=== PATIENT | male | born 1950 | race Caucasian/White ===

== ENCOUNTER → 2020-03-05 11:38 | Outpatient (BNVA) | payer OTHER, SELFPAY | PROVIDERS: PCP Internal Medicine; Visit Provider Urology | DX: Z76.89 Persons encountering health services in other specified circumstances (principal) ==

== ENCOUNTER → 2020-10-08 15:16 | Outpatient (BNVA) | payer MEDICARE, BC, SELFPAY | PROVIDERS: PCP Internal Medicine; Visit Provider Urology | CPT/HCPCS: Q3014 ==

== ENCOUNTER 2021-01-17 06:00 | Day surgery (SDC) | payer MEDICARE, BC, SELFPAY ==
[2021-01-11 09:13] VITALS: BMI 32.7
[2021-01-17] VITALS (7 sets, daily range): BP systolic 99–154; BP diastolic 43–71; PULSE 59–77; RESP 16–17; TEMP 36.1–36.5; O2SAT 95–99
[2021-01-17] MEDS: Lactated Ringers 1,000 ML 100 ML IVCONT (06:34)
--- NOTE | 2021-01-17 07:14 | HO.ANESPROP2 ---
[facility] Active Problems Active Problems: All Active Problems (Updated 01/11/21 @ 09:32 by Alejandra Thomas RN) Neurogenic urinary bladder disorder (Acute) Urinary urgency (Acute) Past Medical History Medical History (Updated 01/11/21 @ 09:32 by Alejandra Thomas RN) Arthritis Ataxia Balance problem BPH (benign prostatic hyperplasia) Cellulitis Depression Elevated cholesterol GERD (gastroesophageal reflux disease) History of CVA (cerebrovascular accident) HTN (hypertension) Low back pain OAB (overactive bladder) CATALINA on CPAP Spastic paraplegia, hereditary Wheelchair dependence Family History Family History (Updated 01/11/21 @ 09:36 by Alejandra Thomas RN) Father during operation Surgical History Surgical History (Updated 01/11/21 @ 09:32 by Alejandra Thomas RN) Hx of colonoscopy Hx of cystoscopy Hx of eye surgery S/P patent foramen ovale closure Social History Social History (Updated 01/11/21 @ 09:32 by Alejandra Thomas RN) Are you a primary child care worker to a significant other at home: No Patient Tobacco Use Status: Never used Tobacco Use of substances other than those prescribed or required for medical reasons: Yes Substance Use Type: Marijuana Substance Use Type Other:: medical marijuana Are you DNR?: No Advance Directives: No (will bring dos) Advance Directives Information Provided: No Advance Directives on File: No Meds Allergies Allergy/AdvReac Type Severity Reaction Status Date / Time lisinopril AdvReac Intermediate cough Verified 01/11/21 09:03 Home Medications Medication Instructions Recorded Confirmed Last Taken Type baclofen 10 mg tablet 10 mg PO TID 03/05/20 01/11/21 01/17/21 History citalopram 40 mg tablet 40 mg PO BEDTIME 03/05/20 01/11/21 Unknown History dantrolene 25 mg capsule 10 mg PO .0800+1400 03/05/20 01/11/21 Unknown History finasteride 5 mg tablet 5 mg PO BEDTIME 03/05/20 01/11/21 Unknown History ketorolac 0.5 % eye drops drp OPHTHALMIC (EYE) 03/05/20 10/08/20 Unknown History losartan 100 mg tablet 100 mg PO DAILY 03/05/20 01/11/21 Unknown History omeprazole 40 mg capsule,delayed 40 mg PO DAILY 03/05/20 01/11/21 01/17/21 History release simvastatin 40 mg tablet 40 mg PO BEDTIME 03/05/20 01/11/21 Unknown History aspirin 325 mg tablet 325 mg PO DAILY 01/11/21 01/11/21 Unknown History cephalexin 500 mg capsule 1 cap PO BID 01/11/21 01/11/21 01/17/21 History dantrolene 25 mg capsule 20 cap PO BEDTIME 01/11/21 01/11/21 01/17/21 History diltiazem HCl 360 mg 360 mg PO QAM 01/11/21 01/11/21 01/17/21 History capsule,extended release 24 hr docusate sodium 100 mg capsule 100 mg PO DAILY 01/11/21 01/11/21 Unknown History Exam Exam Date and Time: January 17, [id number] Height,Weight and Vital Signs: Height 5 ft 10 in Weight 103.419 kg Last Vital Signs Temp 97.7 F 01/17/21 06:29 Pulse 77 01/17/21 06:29 Resp 16 01/17/21 06:29 BP 154/71 H 01/17/21 06:29 Pulse Ox 98 01/17/21 06:29 Airway Mallampati Class: III TM Dist: >3cm Neck ROM: Full
--- NOTE | 2021-01-17 07:45 | MHC.SHP ---
Pre-Procedural Eval Section A Date of Service: 01/17/21 The patient is an INPATIENT: No Changes since office visit: No Cold of Flu in the past 2 weeks, No New Medical Problems, No Changes in Medication and No Patient answered all questions The History & Physical has been completed within 30 days and I have reviewed it.: No Section B Chief Complaint: bladder dysfunction Details of Present Illness: plan for cysto/bladder botox Relevant Family History (Specify if Yes): No Relevant Social History: None Present Medications: see Short Stay Collaborative assessment Medical History: Significant History History of Previous Operations: No relevant previous surgery Allergies: Allergies Allergy/AdvReac Type Severity Reaction Status Date / Time lisinopril AdvReac Intermediate cough Verified 01/11/21 09:03 Review of Systems Sugical H&P ROS: Negative: Constitution, Cardiovascular, Respiratory, Neurological, Psychiatric, Hem-Onc, Allergic/Immunologic, Gastrointestinal, Genitourinary, Musculoskeletal, Integumentary, Endocrine and Eyes/Ears/Nose/Throat Exam Surgical H&P Exam: Normal: HEENT, Normal: Heart, Normal: Lungs, Normal: Extremities, Normal: Abdomen, Normal: Skin and Normal: Neurological Plan Diagnosis/Plan: Unchanged (cysto, botox) I have reviewed the history and physical and performed a pertinent physical examination on my patient. No changes have occurred unless specified.
--- NOTE | 2021-01-17 08:16 | W.PM.OPN ---
Operative Note Operative Note Date of Service: 01/17/21 Narrative: PreOperative Diagnosis: Overactive bladder with failure of medications Post Operative Diagnosis: Overactive bladder with failure of medications Procedure: Cystoscopy with injection 100 units Botox intra detrusor muscle Surgeon: Dr Jermain Gutierrez Anesthesia: Sedation Indications for procedure: Is a very pleasant 70-year-old male. Has persistent urgency and frequency In setting of progressive neurological condition.. Has failed oral medications Particularly overactive bladder medications with side effects including dry mouth and constipation. For cystoscopy and Botox injection. Is aware of the risks and benefits particularly related to urinary retention and possible infection. Procedure: After informed consent was verified the patient was brought to the operating room and placed in a supine position. Anesthesia was administered per protocol. Cystoscopy performed with 22 [place] cystoscope. Bladder was emptied of urine. Bladder was refilled. Using 100 units of Botox mixed in 10 cc of normal saline injections were placed at the back wall of the bladder. 0.5cc placed at each injection site. Injections were placed in a grid 5 across and for high. Injections were placed from the inferior to superior position. Trabeculations on the bladder wall with targeted for each injection site. Procedure was tolerated well. Patient was extubated and transferred in stable condition to the recovery area. Pathology: None Drains: None
[2021-01-17] MEDS: Phenazopyridine HCL 100 MG TABLET PO (08:35)
== END 2021-01-17 10:00 | disposition home or self-care (01) ==
PROVIDERS: PCP Internal Medicine; Visit Provider Urology
PROC: 3E0K8GC Introduction of Other Therapeutic Substance into Genitourinary Tract, Via Natural or Artificial Opening Endoscopic (ICD-10-PCS; CPT 52287; principal; 2021-01-17 07:30)
DX: N31.9 Neuromuscular dysfunction of bladder, unspecified (principal); N32.81 Overactive bladder; N40.1 Benign prostatic hyperplasia with lower urinary tract symptoms; R39.15 Urgency of urination; R35.0 Frequency of micturition; R29.818 Other symptoms and signs involving the nervous system; R68.2 Dry mouth, unspecified; K59.00 Constipation, unspecified; G11.4 Hereditary spastic paraplegia; Z99.3 Dependence on wheelchair; Z79.899 Other long term (current) drug therapy; Z88.8 Allergy status to other drugs, medicaments and biological substances
CPT/HCPCS: 52287; J0585; J1100; J1956; J2250; J2405; J3010

== ENCOUNTER → 2021-02-01 14:17 | Outpatient (BNVA) | payer MEDICARE, BC, SELFPAY | PROVIDERS: Visit Provider Urology | DX: N31.9 Neuromuscular dysfunction of bladder, unspecified (principal) | CPT/HCPCS: 99212 ==

== ENCOUNTER → 2021-06-02 10:49 | Outpatient (BNVA) | payer MEDICARE, OTHER, SELFPAY | PROVIDERS: Visit Provider Urology | DX: N31.9 Neuromuscular dysfunction of bladder, unspecified (principal); N32.81 Overactive bladder; R39.15 Urgency of urination | CPT/HCPCS: 51798; 99212 ==

== ENCOUNTER → 2021-10-04 10:47 | Outpatient (BNVA) | payer MEDICARE, OTHER, SELFPAY | PROVIDERS: PCP Internal Medicine; Visit Provider Urology | DX: N31.9 Neuromuscular dysfunction of bladder, unspecified (principal) | CPT/HCPCS: 51798; 99212 ==

== ENCOUNTER → 2022-04-12 13:35 | Outpatient (BNVA) | payer MEDICARE, OTHER, SELFPAY | PROVIDERS: PCP Internal Medicine; Visit Provider Urology | DX: N31.9 Neuromuscular dysfunction of bladder, unspecified (principal); R39.15 Urgency of urination | CPT/HCPCS: Q3014 ==

== ENCOUNTER 2022-06-23 10:03 | Outpatient (AMB) | payer MEDICARE, OTHER, SELFPAY ==
--- NOTE | 2022-06-23 10:48 | MHC.OFFVIS ---
Intake Intake Visit Reasons: UTI?/follow up Intake Note: Patient is present for Follow Up UTI Urology Med: Finasteride Antibiotic Allergy: None Blood Thinner: Aspirin Patient states he had recent Bladder ultrasound done and a recent Urine Culture done as well Allergies lisinopril Adverse Reaction (Intermediate, Verified 10/06/22 09:42) cough HPI HPI Comments History of Present Illness Details Dillon Treviño is a very pleasant male. They are a patient of Dr Lowe. He seen for the following urologic conditions - neurogenic bladder Has had some benefit from bethanechol Is performing timed voiding Does have urgency every few hours Upcoming airline flight to [place] His concerns regarding bladder control Recommendation for [place] catheter into use during travel May potentially benefit from bethanechol for bladder squeeze and/or nightly intermittent catheterization At this point will trial double voiding and timed voiding to maintain bladder emptying Neurogenic Bladder: Urinary retention initially found progressive development over time - has hereditary paralysis. Known neurogenic bladder from prior urodynamics 2009 - has been optimized on outlet medication and detrol Imaging results 08/06 no hydronephrosis 08/07 , no hydronephrosis Treatments - Botox January 2021 Current recommendations for double voiding and timed voiding to maintain bladder emptying PFSH Medical History Arthritis Ataxia Balance problem BPH (benign prostatic hyperplasia) Cellulitis Depression Elevated cholesterol GERD (gastroesophageal reflux disease) History of CVA (cerebrovascular accident) HTN (hypertension) Low back pain OAB (overactive bladder) CATALINA on CPAP Spastic paraplegia, hereditary Wheelchair dependence Surgical History Hx of colonoscopy Hx of cystoscopy Hx of eye surgery S/P patent foramen ovale closure Family History Father during operation Social History Are you a primary manager wound care to a significant other at home: No Patient Tobacco Use Status: Never used Tobacco Substance Use Type: Marijuana Review of Systems Const Denies chills and Denies fever(s) Card Reports no additional complaints and Denies syncope Resp Denies cough GI Denies abdominal pain and Denies heartburn Reports as per HPI and Denies change in libido Neuro Denies syncope Psych Denies change in libido Endo Denies change in libido Physical Exam Const General: cooperative, healthy appearing, comfortable and no acute distress Orientation/consciousness: patient oriented x3 HEENT Face and sinus: Yes normal facial exam Mouth: moist mucous membranes Neck Neck: Yes normal visual inspection, Yes full ROM and Yes trachea midline Chest Chest palpation & inspection: normal inspection of the chest Resp Effort & Inspection: normal respiratory effort, able to speak in complete sentences and no respiratory distress GI Inspection: Yes normal to inspection Back/Spine/Pelvis Cervical Spine: normal cervical lordosis Thoracic/Lumbar Spine: thoracic and lumbar spine normal to inspection Skin General skin exam: no rashes or lesions noted Neuro General: patient oriented x3, gait normal, tone normal and moves all extremities Extrem General: Yes normal to inspection and Yes capillary refill normal Results AMB Urinalysis, Automated UA Leukoctes 125 Yvon/uL Last Edit by Sindy Au Melani on 06/23/22 11:04 UA Nitrite Negative Last Edit by Sindy Au Melani on 06/23/22 11:04 UA Urobilinogen 0.2 mg/dL Last Edit by Sindy Au [facility] on 06/23/22 11:04 UA Protein 0 mg/dL Last Edit by Sindy Au Melani on 06/23/22 11:04 UA pH 6.0 Last Edit by Sindy Au [facility] on 06/23/22 11:04 UA Blood 0 Pritesh/uL Last Edit by Sindy Au Melani on 06/23/22 11:04 UA Specific [place] 1.015 Last Edit by Sindy Au Melani on 06/23/22 11:04 UA Ketone Negative Last Edit by Sindy Au [facility] on 06/23/22 11:04 UA Bilirubin 0 mg/dL Last Edit by SIDNEY Ahmadi on 06/23/22 11:04 UA Glucose 0 mg/dL Last Edit by Sindy Au [facility] on 06/23/22 11:04 Results Reviewed Results Reviewed: Laboratory Last Values Urine pH (Auto) 6.0 06/23/22 10:56 Specific [place] (Auto) 1.015 06/23/22 10:56 Urine Protein (Auto) 0 mg/dL 06/23/22 10:56 Glucose (UA)(Auto) 0 mg/dL 06/23/22 10:56 Urine Ketones (Auto) Negative 06/23/22 10:56 Urine Blood (Auto) 0 Pritesh/uL 06/23/22 10:56 Urine Nitrite (Auto) Negative 06/23/22 10:56 Urine Bilirubin (Auto) 0 mg/dL 06/23/22 10:56 Urine Urobilinogen (Auto) 0.2 mg/dL 06/23/22 10:56 Leukocyte Esterase (Auto) 125 Yvon/uL 06/23/22 10:56 Assessment & Plan Assessment & Plan (1) Neurogenic urinary bladder disorder: Comment: Botox January 2021 Code(s): N31.9 - Neuromuscular dysfunction of bladder, unspecified (2) Detrusor instability of bladder: Code(s): N32.81 - Overactive bladder Plan Trial of [place] catheter for travel Orders: Orders AMB Urinalysis Automated 06/23/22 Z13.9 - Encounter for screening, unspecified Patient Instructions: Imaging studies, laboratory and physical exam results were discussed and reviewed in detail. No major barriers to patient understanding were identified. An opportunity to ask questions regarding the treatment plan was provided. All questions were answered. The patient expressed understanding and agreement with the above treatment plan. The patient is aware they should contact our office by phone for worsening of their current condition or the appearance of new urologic symptoms. Compliance is encouraged with any medications and followup testing that is ordered. It is a privilege to participate in the urologic care of your patient. If you have any questions or concerns regarding treatment for the above conditions, or other urologic issues, please do not hesitate to contact me. The office telephone contact is [phone]. This note is constructed using voice recognition software. While every effort has been made to ensure accuracy medical receptionist errors may have been included. Yours sincerely, Dr Jermain Gutierrez MD, [facility] - Urology Providers of Expert, Compassionate Care for the Genitourinary System Coding Level of Care Code Est Pt Level 3 (50447) Diagnoses Neurogenic urinary bladder disorder N31.9 Detrusor instability of bladder N32.81
== END 2022-06-23 11:46 | disposition home or self-care (01) ==
LOC: HO.HUSH 10:03
PROVIDERS: PCP Internal Medicine; Visit Provider Urology
DX: N31.9 Neuromuscular dysfunction of bladder, unspecified (principal); N32.81 Overactive bladder
CPT/HCPCS: 99213

== ENCOUNTER → 2022-06-23 10:03 | Outpatient (BNVA) | payer MEDICARE, OTHER, SELFPAY | PROVIDERS: PCP Internal Medicine; Visit Provider Urology | DX: N31.9 Neuromuscular dysfunction of bladder, unspecified (principal); N32.81 Overactive bladder | CPT/HCPCS: 99212 ==

== ENCOUNTER → 2022-06-27 10:31 | Outpatient (BNVA) | payer MEDICARE, OTHER, SELFPAY | PROVIDERS: PCP Family Medicine; Visit Provider Urology ==

== ENCOUNTER → 2022-07-19 15:00 | Outpatient (BNVA) | payer MEDICARE, OTHER, SELFPAY | PROVIDERS: PCP Family Medicine; Visit Provider Urology | DX: N31.9 Neuromuscular dysfunction of bladder, unspecified (principal) ==

== ENCOUNTER 2022-10-06 09:35 | Outpatient (AMB) | payer MEDICARE, OTHER, SELFPAY ==
--- NOTE | 2022-10-06 09:37 | MHC.OFFVIS ---
Intake Intake Visit Reasons: 3m/PVR/discuss SP tube Intake Note: Patient is present for Follow Up PVR Urology Med: Bethanechol, Myrbetriq, Flomax, Finasteride, Antibiotic Allergy:None Blood Thinner: Aspirin [facility]: [facility] PVR: Allergies lisinopril Adverse Reaction (Intermediate, Verified 10/06/22 09:42) cough Medication List - Last Reconciled 10/06/22 by Jermain Gutierrez MD amlodipine 10 mg PO DAILY aspirin 325 mg PO DAILY atorvastatin 40 mg PO DAILY baclofen 10 mg PO TID bethanechol chloride 50 mg PO BID 30 days dantrolene 10 mg PO .0800+1400 diclofenac sodium 75 mg PO BID diltiazem HCl ER 360 mg PO DAILY finasteride 5 mg PO BEDTIME fluoxetine 40 mg PO BID gabapentin 600 mg PO DAILY ketoconazole 2% 1 appl topical 2XW lactulose 10 grams (15 mL) PO BID 30 days lorazepam 0.5 mg PO DAILY PRN losartan 75 mg PO DAILY mirabegron ER (Myrbetriq) 25 mg PO DAILY 30 days nystatin topical BID PRN nystatin 1 appl topical BID omeprazole 40 mg PO DAILY pantoprazole 40 mg PO DAILY HPI HPI Comments History of Present Illness Details Dillon Treviño is a very pleasant male. They are a patient of Dr Lowe. He seen for the following urologic conditions - neurogenic bladder Recent episode of urosepsis Background of hereditary paralysis Current urologic medications include finasteride with tamsulosin for prostate relaxation Myrbetriq with bethanechol for detrusor instability and impaired contractility Has been performing self catheterization 2 times per day with approximately 4-6 oz Has unsensed urination [id number] postvoid residuals Given recent episode with urosepsis they are interested in defining bladder performance Recommend neuro Urology referral with repeat urodynamics at [facility] Would need to stop bladder medications week prior in order to get baseline evaluation Add methenamine with vitamin-C Neurogenic Bladder: Urinary retention initially found progressive development over time - has hereditary paralysis. Known neurogenic bladder from prior urodynamics 2009 - has been optimized on outlet medication and detrol Imaging results 08/06 [place] no hydronephrosis 08/07 , no hydronephrosis Treatments - Botox January 2021 Current recommendations for double voiding and timed voiding to maintain bladder emptying [facility] Medical History Arthritis Ataxia Balance problem BPH (benign prostatic hyperplasia) Cellulitis Depression Elevated cholesterol GERD (gastroesophageal reflux disease) History of CVA (cerebrovascular accident) HTN (hypertension) Low back pain OAB (overactive bladder) CATALINA on CPAP Spastic paraplegia, hereditary Wheelchair dependence Surgical History Hx of colonoscopy Hx of cystoscopy Hx of eye surgery S/P patent foramen ovale closure Family History Father during operation Social History Are you a primary pediatric critical care nurse to a significant other at home: No Patient Tobacco Use Status: Never used Tobacco Substance Use Type: Marijuana Review of Systems Const Denies chills and Denies fever(s) Card Reports no additional complaints and Denies syncope Resp Denies cough GI Denies abdominal pain and Denies heartburn Reports as per HPI and Denies change in libido Neuro Denies syncope Psych Denies change in libido Endo Denies change in libido Physical Exam Const General: cooperative, healthy appearing, comfortable and no acute distress Orientation/consciousness: patient oriented x3 HEENT Face and sinus: Yes normal facial exam Mouth: moist mucous membranes Neck Neck: Yes normal visual inspection, Yes full ROM and Yes trachea midline Chest Chest palpation & inspection: normal inspection of the chest Resp Effort & Inspection: normal respiratory effort, able to speak in complete sentences and no respiratory distress GI Inspection: Yes normal to inspection Back/Spine/Pelvis Cervical Spine: normal cervical lordosis Thoracic/Lumbar Spine: thoracic and lumbar spine normal to inspection Skin General skin exam: no rashes or lesions noted Neuro General: patient oriented x3, gait normal, tone normal and moves all extremities Extrem General: Yes normal to inspection and Yes capillary refill normal Office Procedures Post Void Residual Post Residual Void Post Void Residual (PVR): [id number] Void Residual by ultrasound Assessment & Plan Assessment & Plan (1) Neurogenic urinary bladder disorder: Comment: Botox January 2021 Code(s): N31.9 - Neuromuscular dysfunction of bladder, unspecified (2) Detrusor instability of bladder: Code(s): N32.81 - Overactive bladder Plan Referral [facility] Six month follow-up Orders: Orders AMB Post Void Residual by ultrasound Today N31.9 - Neuromuscular dysfunction of bladder, unspecified Referrals Urology Referral N31.9 - Neuromuscular dysfunction of bladder, unspecified Medications: New ascorbic acid (vitamin C) 1 g PO DAILY 90 days 90 tabs 1RF N31.9 - Neuromuscular dysfunction of bladder, unspecified, N39.0 - Urinary tract infection, site not specified methenamine hippurate 1 g PO DAILY 90 days 90 tabs 1RF N31.9 - Neuromuscular dysfunction of bladder, unspecified, N39.0 - Urinary tract infection, site not specified Discontinued bethanechol chloride Discontinued Reason: Doctor's Order 50 mg PO BID 30 days 60 tabs 5RF mirabegron ER (Myrbetriq) Discontinued Reason: Doctor's Order 25 mg PO DAILY 30 days 30 tabs 5RF Patient Instructions: Imaging studies, laboratory and physical exam results were discussed and reviewed in detail. No major barriers to patient understanding were identified. An opportunity to ask questions regarding the treatment plan was provided. All questions were answered. The patient expressed understanding and agreement with the above treatment plan. The patient is aware they should contact our office by phone for worsening of their current condition or the appearance of new urologic symptoms. Compliance is encouraged with any medications and followup testing that is ordered. It is a privilege to participate in the urologic care of your patient. If you have any questions or concerns regarding treatment for the above conditions, or other urologic issues, please do not hesitate to contact me. The office telephone contact is [phone]. This note is constructed using voice recognition software. While every effort has been made to ensure accuracy ground source heat pump technician errors may have been included. Yours sincerely, Dr Jermain Gutierrez MD, [facility] - Urology Providers of Expert, Compassionate Care for the Genitourinary System Coding Level of Care Code Est Pt Level 3 (58950) Diagnoses Neurogenic urinary bladder disorder N31.9 Detrusor instability of bladder N32.81 CPT Codes Post Residual Void - PVR CPT Code: [id number] Void Residual by ultrasound ([id number])
== END 2022-10-06 10:34 | disposition home or self-care (01) ==
PROVIDERS: PCP Family Medicine; Visit Provider Urology
DX: N31.9 Neuromuscular dysfunction of bladder, unspecified (principal); N32.81 Overactive bladder
CPT/HCPCS: 99213

== ENCOUNTER → 2022-10-06 09:35 | Outpatient (BNVA) | payer MEDICARE, OTHER, SELFPAY | PROVIDERS: Visit Provider Urology | DX: N31.9 Neuromuscular dysfunction of bladder, unspecified (principal); N32.81 Overactive bladder; G11.4 Hereditary spastic paraplegia; Z99.3 Dependence on wheelchair | CPT/HCPCS: 51798; 99212 ==

== ENCOUNTER 2022-12-07 08:13 | Outpatient (AMB) | payer MEDICARE, OTHER, SELFPAY ==
--- NOTE | 2022-12-07 08:49 | A.OFFVIS_ITS ---
Intake Intake Visit Reasons: discuss SPT after [facility] referral Intake Note: Patient is Present for Telephone Follow Up Urology Med: Finasteride, Methenamine. Antibiotic Allergy: None Blood Thinner: Aspirin, Pharamcy: Allergies lisinopril Adverse Reaction (Intermediate, Verified 10/06/22 09:42) cough HPI HPI Comments History of Present Illness Details Dillon Treviño is a very pleasant male. He is a patient of Dr Lowe. He seen for the following urologic conditions - neurogenic bladder Telemedicine Evaluation 15 min Consultation [place] Marnie Video attempted Had evaluation at [facility] They recommended suprapubic tube No need for urodynamics Discussion today regarding risks and benefits suprapubic tube placement. Good hand function Episode of urosepsis Background of hereditary paralysis Current urologic medications include finasteride with tamsulosin for prostate relaxation Myrbetriq with bethanechol for detrusor instability and impaired contractility Has been performing self catheterization 2 times per day with approximately 4-6 oz Has unsensed urination Encl-nj-hqratwid postvoid residuals Add methenamine with vitamin-C Neurogenic Bladder: Urinary retention initially found progressive development over time - has hereditary paralysis. Known neurogenic bladder from prior urodynamics 2009 - has been optimized on outlet medication and detrol Imaging results 08/06 US no hydronephrosis 08/07 , no hydronephrosis Treatments - Botox January 2021 Current recommendations for double voiding and timed voiding to maintain bladder emptying PFSH Medical History Arthritis Ataxia Balance problem BPH (benign prostatic hyperplasia) Cellulitis Depression Elevated cholesterol GERD (gastroesophageal reflux disease) History of CVA (cerebrovascular accident) HTN (hypertension) Low back pain OAB (overactive bladder) CATALINA on CPAP Spastic paraplegia, hereditary Wheelchair dependence Surgical History Hx of colonoscopy Hx of cystoscopy Hx of eye surgery S/P patent foramen ovale closure Family History Father during operation Social History Are you a primary clinical care coordinator to a significant other at home: No Patient Tobacco Use Status: Never used Tobacco Substance Use Type: Marijuana Review of Systems Const All systems reviewed & are unremarkable except as noted in HPI and below Reports no additional complaints Resp Reports no additional complaints GI Reports no additional complaints Reports as per HPI Musc Reports no additional complaints Physical Exam Telemedicine evaluation Appropriate responses Regular breathing rate and rhythm HEENT Head: Yes normal to inspection Ears: hearing grossly normal bilaterally Eyes General: appearance normal, both eyes and all related structures Neck Neck: Yes normal visual inspection Chest Chest palpation & inspection: normal inspection of the chest Resp Effort & Inspection: normal respiratory effort and able to speak in complete sentences Assessment & Plan Assessment & Plan (1) Neurogenic urinary bladder disorder: Comment: Botox January 2021 Code(s): N31.9 - Neuromuscular dysfunction of bladder, unspecified (2) Detrusor instability of bladder: Code(s): N32.81 - Overactive bladder Plan Risks, benefits and alternatives to therapy were discussed. These include but are not limited to infection, bleeding, damage to local organs and tissues, need for further interventions. Anesthetic risks regarding cardiac arrhythmia, blood clots, and potential mortality were discussed. The patient understands the typical recovery time and the outpatient nature of the procedure. After consideration of these risks the patient gives full informed consent and they wish to move ahead with the procedure. Cystoscopy with suprapubic tube placement Patient Instructions: Imaging studies, laboratory and physical exam results were discussed and reviewed in detail. No major barriers to patient understanding were identified. An opportunity to ask questions regarding the treatment plan was provided. All questions were answered. The patient expressed understanding and agreement with the above treatment plan. The patient is aware they should contact our office by phone for worsening of their current condition or the appearance of new urologic symptoms. Compliance is encouraged with any medications and followup testing that is ordered. It is a privilege to participate in the urologic care of your patient. If you have any questions or concerns regarding treatment for the above conditions, or other urologic issues, please do not hesitate to contact me. The office telephone contact is [phone]. This note is constructed using voice recognition software. While every effort has been made to ensure accuracy bushing press operator errors may have been included. Yours sincerely, Dr Jermain Gutierrez MD, [facility] - Urology Providers of Expert, Compassionate Care for the Genitourinary System Telehealth Telehealth Location of provider rendering services: practice address Location of patient: address on file Patient Identification confirmed using: Name, : Yes Telehealth method: video Patient verbally consented to treatment: Yes Patient verbally consented to billing insurance company: Yes Patient informed of any privacy concerns related to visit: Yes Coding Level of Care Code Tele Est Pt Level 4 (64148) Diagnoses Neurogenic urinary bladder disorder N31.9 Detrusor instability of bladder N32.81
== END 2022-12-07 10:58 | disposition home or self-care (01) ==
LOC: HO.HUSH 08:13
PROVIDERS: PCP Family Medicine; Visit Provider Urology
DX: N31.9 Neuromuscular dysfunction of bladder, unspecified (principal); N32.81 Overactive bladder
CPT/HCPCS: 99214

== ENCOUNTER → 2022-12-07 08:13 | Outpatient (BNVA) | payer MEDICARE, OTHER, SELFPAY | PROVIDERS: PCP Family Medicine; Visit Provider Urology ==

== ENCOUNTER → 2022-12-20 14:31 | Outpatient (BNVA) | payer MEDICARE, OTHER, SELFPAY | PROVIDERS: PCP Family Medicine; Visit Provider Urology | DX: N31.9 Neuromuscular dysfunction of bladder, unspecified (principal) | CPT/HCPCS: 51702 ==

== ENCOUNTER 2023-01-08 11:39 | Day surgery (SDC) | payer MEDICARE, OTHER, SELFPAY ==
--- NOTE | 2023-01-05 10:51 | P.CONAN_ITS ---
Documented by User: Sue Sharp NP 01/05/23 10:53 HPI - Anesthesia Eval Consult details Narrative: 72yo M for Insertion Suprapubic Tube paraplegia, wheelchair dependent [facility] Active Problems Active Problems: All Active Problems (Updated 06/02/21 @ 13:43 by Jermain Gutierrez MD) Detrusor instability of bladder (Acute) Neurogenic urinary bladder disorder (Acute) Urinary urgency (Acute) Past Medical History Medical History (Updated 01/08/23 @ 12:49 by Lori Mcdonald, RN) History of electroconvulsive therapy Spastic paraplegia, hereditary Ataxia Arthritis Low back pain History of CVA (cerebrovascular accident) Cellulitis Balance problem Wheelchair dependence CATALINA on CPAP Depression OAB (overactive bladder) BPH (benign prostatic hyperplasia) GERD (gastroesophageal reflux disease) Elevated cholesterol HTN (hypertension) Family History Family History Father during operation Surgical History Surgical History Hx of eye surgery Hx of cystoscopy Hx of colonoscopy S/P patent foramen ovale closure Social History Social History Are you a primary child care specialist to a significant other at home: No Patient Tobacco Use Status: Never used Tobacco Substance Use Type: Marijuana Are you DNR?: Yes Advance Directives: Yes Advance Directives Information Provided: Yes Advance Directives on File: Yes Advance Directives Date on File: 01/08/23 Nutrition Risks: No Nutritional Risk Meds Allergies Allergy/AdvReac Type Severity Reaction Status Date / Time lisinopril AdvReac Intermediate cough Verified 01/08/23 12:29 Home Medications Medication Instructions Recorded Confirmed Last Taken Type baclofen 10 mg tablet 10 mg PO TID 03/05/20 01/08/23 01/08/23 History dantrolene 25 mg capsule 10 mg PO .0800+1400 03/05/20 10/06/22 Unknown History finasteride 5 mg tablet 5 mg PO BEDTIME 03/05/20 10/06/22 Unknown History omeprazole 40 mg capsule,delayed 40 mg PO DAILY 03/05/20 10/06/22 01/17/21 History release aspirin 325 mg tablet 325 mg PO DAILY 01/11/21 10/06/22 Unknown History amlodipine 10 mg tablet 10 mg PO DAILY 02/01/21 10/06/22 Unknown History diltiazem HCl 360 mg capsule,24 360 mg PO DAILY 02/01/21 01/08/23 01/08/23 History hr,extended release ketoconazole 2 % shampoo 1 appl topical 2XW 02/01/21 10/06/22 Unknown History lorazepam 0.5 mg tablet 0.5 mg PO DAILY PRN 06/02/21 10/06/22 Unknown History nystatin 100,000 unit/gram topical 1 appl topical BID 06/02/21 10/06/22 Unknown History cream nystatin 100,000 unit/gram topical topical BID PRN 06/02/21 10/06/22 Unknown History powder pantoprazole 40 mg tablet,delayed 40 mg PO DAILY 06/02/21 10/06/22 Unknown History release atorvastatin 40 mg tablet 40 mg PO DAILY 10/04/21 10/06/22 Unknown History diclofenac sodium 75 mg 75 mg PO BID 10/04/21 10/06/22 Unknown History tablet,delayed release fluoxetine 20 mg capsule 40 mg PO BID 04/12/22 01/08/23 01/08/23 History gabapentin 600 mg tablet 600 mg PO DAILY 04/12/22 10/06/22 Unknown History losartan 50 mg tablet 75 mg PO DAILY 04/12/22 10/06/22 Unknown History Assessment and Plan Assessment Anesthesia Assessment: Chart Reviewed Documented by User: Dayna Haider MD 01/08/23 15:13 [facility] Past Medical History Medical History (Updated 01/08/23 @ 12:49 by Lori Mcdonald RN) History of electroconvulsive therapy Spastic paraplegia, hereditary Ataxia Arthritis Low back pain History of CVA (cerebrovascular accident) Cellulitis Balance problem Wheelchair dependence CATALINA on CPAP Depression OAB (overactive bladder) BPH (benign prostatic hyperplasia) GERD (gastroesophageal reflux disease) Elevated cholesterol HTN (hypertension) Family History Family History Father during operation Family history of problems with anesthesia: No Surgical History Surgical History Hx of eye surgery Hx of cystoscopy Hx of colonoscopy S/P patent foramen ovale closure History of Problems with Anesthesia: No Social History Social History Are you a primary child care specialist to a significant other at home: No Patient Tobacco Use Status: Never used Tobacco Substance Use Type: Marijuana Are you DNR?: Yes Advance Directives: Yes Advance Directives Information Provided: Yes Advance Directives on File: Yes Advance Directives Date on File: 01/08/23 Nutrition Risks: No Nutritional Risk Meds Allergies Allergy/AdvReac Type Severity Reaction Status Date / Time lisinopril AdvReac Intermediate cough Verified 01/08/23 12:29 Home Medications Medication Instructions Recorded Confirmed Last Taken Type baclofen 10 mg tablet 10 mg PO TID 03/05/20 01/08/23 01/08/23 History dantrolene 25 mg capsule 10 mg PO .0800+1400 03/05/20 10/06/22 Unknown History finasteride 5 mg tablet 5 mg PO BEDTIME 03/05/20 10/06/22 Unknown History omeprazole 40 mg capsule,delayed 40 mg PO DAILY 03/05/20 10/06/22 01/17/21 History release aspirin 325 mg tablet 325 mg PO DAILY 01/11/21 10/06/22 Unknown History amlodipine 10 mg tablet 10 mg PO DAILY 02/01/21 10/06/22 Unknown History diltiazem HCl 360 mg capsule,24 360 mg PO DAILY 02/01/21 01/08/23 01/08/23 History hr,extended release ketoconazole 2 % shampoo 1 appl topical 2XW 02/01/21 10/06/22 Unknown History lorazepam 0.5 mg tablet 0.5 mg PO DAILY PRN 06/02/21 10/06/22 Unknown History nystatin 100,000 unit/gram topical 1 appl topical BID 06/02/21 10/06/22 Unknown History cream nystatin 100,000 unit/gram topical topical BID PRN 06/02/21 10/06/22 Unknown History powder pantoprazole 40 mg tablet,delayed 40 mg PO DAILY 06/02/21 10/06/22 Unknown History release atorvastatin 40 mg tablet 40 mg PO DAILY 10/04/21 10/06/22 Unknown History diclofenac sodium 75 mg 75 mg PO BID 10/04/21 10/06/22 Unknown History tablet,delayed release fluoxetine 20 mg capsule 40 mg PO BID 04/12/22 01/08/23 01/08/23 History gabapentin 600 mg tablet 600 mg PO DAILY 04/12/22 10/06/22 Unknown History losartan 50 mg tablet 75 mg PO DAILY 04/12/22 10/06/22 Unknown History Exam Airway Mallampati Class: II (multiple caps, crowns laterally) TM Dist: >3cm Neck ROM: Full Heart: rrr Lungs: cta Assessment and Plan Assessment Anesthesia Assessment: Anesthesia Plan Discussed Final Anesthetic Review Family History of Problems with Anesthesia: No History of Problems with Anesthesia: No NPO: Yes ASA Class: III Final Preanesthetic Review: No Changes in Pt Med Stat, Meds/Allgs Chart Reviewed and Consent Obtained/Reviewed Patient Risk: Intermediate Procedure Risk: Intermediate Anesthetic Plan Anesthetic Plan: MAC: Disposition: Standard PACU
[2023-01-08] MEDS: Lactated Ringers 1,000 ML 100 ML IVCONT (13:04)
[2023-01-08 13:05] VITALS: BP 141/63; PULSE 81; RESP 18; TEMP 36.7; O2SAT 96
[2023-01-08 13:06] VITALS: BMI 30.7
--- NOTE | 2023-01-08 14:54 | PC.NURSE ---
report given to arlin robertson rn at this time.
--- NOTE | 2023-01-08 15:09 | MHC.SHP ---
Pre-Procedural Eval Section A Date of Service: 01/08/23 The patient is an INPATIENT: No Changes since office visit: No Cold of Flu in the past 2 weeks, No New Medical Problems, No Changes in Medication and No Patient answered all questions The History & Physical has been completed within 30 days and I have reviewed it.: Yes Section B Chief Complaint: Neuromuscular dysfunction of bladder, unspecified Allergies: Allergies Allergy/AdvReac Type Severity Reaction Status Date / Time lisinopril AdvReac Intermediate cough Verified 01/08/23 12:29 Plan Diagnosis/Plan: Unchanged (cystoscopy, suprapubic tube placement) I have reviewed the history and physical and performed a pertinent physical examination on my patient. No changes have occurred unless specified. Time Spent With Patient Time: Total time managing care of this patient today ____ minutes.
[2023-01-08 16:14] VITALS: BP 123/62; PULSE 71; RESP 15; TEMP 37; O2SAT 96
--- NOTE | 2023-01-08 16:17 | W.PM.OPN ---
Operative Note Operative Note Date of Service: 01/08/23 Narrative: PreOperative Diagnosis:?neurogenic bladder Post Operative Diagnosis:?neurogenic bladder Procedure:? 1. Cystoscopy 2. Suprapubic tube placement Surgeon: Dr Jermain Gutierrez Anesthesia:?Sedation plus local Indications for procedure: neurogenic bladder Procedure: After informed consent was verified the patient was brought to the operating room and placed in a supine position.? Anesthesia was administered per protocol. The patient was placed in a modified dorsal lithotomy position and prepped and draped in a sterile fashion. A safety pause was performed confirming patient identity, procedure and antibiotics. A flexible cystoscope was inserted per urethra. Bladder was examined in its entirety. No abnormalities seen. Air bubble was located at the dome of the bladder. A finder needle was inserted 2 fingerbreaths above the symphysis pubis on the abdomen into the bladder.? The needle was visualized in the bladder via cystoscopy. Local anesthetic was infiltrated subcutaneously around the needle introduction site. A small, 1cm horizontal incision was made.? A trocar introducer was advanced through the abdominal wall into the bladder under visualization. The obturator was removed and a 16 Fr guevara catheter placed. 7cc was used to inflate the balloon. The external portion of the trocar was removed. Dressing was placed, the bladder was emptied, and a drainage bag was attached. The patient tolerated the procedure and was transferred in stable condition to the recovery area. Suprapubic tube will be changed in 1 month with a follow-up office visit.
[2023-01-08 16:29] VITALS: BP 132/64; PULSE 68; RESP 16; O2SAT 97
[2023-01-08 16:44] VITALS: BP 138/66; PULSE 66; RESP 16; O2SAT 95
[2023-01-08 16:59] VITALS: BP 138/66; PULSE 68; RESP 16; O2SAT 96
[2023-01-08 17:14] VITALS: BP 150/75; PULSE 72; RESP 16; TEMP 36.7; O2SAT 97
== END 2023-01-08 18:02 | disposition home or self-care (01) ==
PROVIDERS: PCP Internal Medicine; Visit Provider Urology
PROC: (CPT 51102; principal; 2023-01-08 13:50)
DX: N31.9 Neuromuscular dysfunction of bladder, unspecified (principal); N32.81 Overactive bladder; N40.0 Benign prostatic hyperplasia without lower urinary tract symptoms; I10 Essential (primary) hypertension; E78.5 Hyperlipidemia, unspecified; K21.9 Gastro-esophageal reflux disease without esophagitis; G11.4 Hereditary spastic paraplegia; F12.90 Cannabis use, unspecified, uncomplicated; G47.33 Obstructive sleep apnea (adult) (pediatric); Z99.89 Dependence on other enabling machines and devices; Z86.73 Personal history of transient ischemic attack (TIA), and cerebral infarction without residual deficits; Z99.3 Dependence on wheelchair; Z79.82 Long term (current) use of aspirin
CPT/HCPCS: 51102; J1956; J2250; J2704; J2795; J3010

== ENCOUNTER → 2023-01-08 11:39 | Outpatient (BNV) | payer MEDICARE, OTHER, SELFPAY | PROVIDERS: PCP Internal Medicine; Visit Provider Urology | DX: N31.9 Neuromuscular dysfunction of bladder, unspecified (principal) | CPT/HCPCS: 51102 ==

== ENCOUNTER 2023-01-12 04:50 | Emergency (ER) | payer MEDICARE, OTHER, SELFPAY ==
[2023-01-12 05:09] VITALS: BP 150/90; PULSE 82; O2SAT 98; BMI 34.0
[2023-01-12 05:10] VITALS: BP 161/62; PULSE 84; RESP 18; TEMP 36.9; O2SAT 96
--- NOTE | 2023-01-12 05:35 | ED_ITS ---
HPI - Male Genitourinary General Chief complaint: Urogenital-Male Stated complaint: CATH ISSUE Time Seen by Provider: 01/12/23 05:24 Source: patient Mode of arrival: EMS Limitations: no limitations History of Present Illness HPI Narrative: Patient came here as his suprapubic catheter came out which was placed 5 days ago patient on cephalexin 500 mg twice daily for chronic UTI. No fever no chills no other symptoms Related Data Home Medications Medication Instructions Recorded Confirmed baclofen 10 mg tablet 10 mg PO TID 03/05/20 01/08/23 dantrolene 25 mg capsule 10 mg PO .0800+1400 03/05/20 10/06/22 finasteride 5 mg tablet 5 mg PO BEDTIME 03/05/20 10/06/22 omeprazole 40 mg capsule,delayed 40 mg PO DAILY 03/05/20 10/06/22 release aspirin 325 mg tablet 325 mg PO DAILY 01/11/21 10/06/22 amlodipine 10 mg tablet 10 mg PO DAILY 02/01/21 10/06/22 diltiazem HCl 360 mg capsule,24 360 mg PO DAILY 02/01/21 01/08/23 hr,extended release ketoconazole 2 % shampoo 1 appl topical 2XW 02/01/21 10/06/22 lorazepam 0.5 mg tablet 0.5 mg PO DAILY PRN 06/02/21 10/06/22 nystatin 100,000 unit/gram topical 1 appl topical BID 06/02/21 10/06/22 cream nystatin 100,000 unit/gram topical topical BID PRN 06/02/21 10/06/22 powder pantoprazole 40 mg tablet,delayed 40 mg PO DAILY 06/02/21 10/06/22 release atorvastatin 40 mg tablet 40 mg PO DAILY 10/04/21 10/06/22 diclofenac sodium 75 mg 75 mg PO BID 10/04/21 10/06/22 tablet,delayed release fluoxetine 20 mg capsule 40 mg PO BID 04/12/22 01/08/23 gabapentin 600 mg tablet 600 mg PO DAILY 04/12/22 10/06/22 losartan 50 mg tablet 75 mg PO DAILY 04/12/22 10/06/22 Previous Rx's Medication Instructions Recorded lactulose 10 gram/15 mL oral 10 g (15 mL) PO BID 30 days #946 mL 06/02/21 solution ascorbic acid (vitamin C) 1,000 mg 1 g PO DAILY 90 days #90 tabs 10/06/22 tablet methenamine hippurate 1 gram tablet 1 g PO DAILY 90 days #90 tabs 10/06/22 Allergies Allergy/AdvReac Type Severity Reaction Status Date / Time lisinopril AdvReac Intermediate cough Verified 01/08/23 12:29 Review of Systems Review of Systems: Yes all other systems are reviewed and are negative [facility] Past Medical History Medical History History of electroconvulsive therapy Spastic paraplegia, hereditary Ataxia Arthritis Low back pain History of CVA (cerebrovascular accident) Cellulitis Balance problem Wheelchair dependence CATALINA on CPAP Depression OAB (overactive bladder) BPH (benign prostatic hyperplasia) GERD (gastroesophageal reflux disease) Elevated cholesterol HTN (hypertension) Surgical History Hx of eye surgery Hx of cystoscopy Hx of colonoscopy S/P patent foramen ovale closure Family History Family History Father during operation Social History Are you a primary animal care assistant to a significant other at home: No Patient Tobacco Use Status: Never used Tobacco Smoked in Last 30 Days: No Use of substances other than those prescribed or required for medical reasons: No Substance Use Type: Marijuana Advance Directives: Yes Advance Directives on File: Yes Advance Directives Date on File: 01/08/23 Physical Exam Vital Signs: Vital Signs: Last Vital Signs Temp 98.5 F 01/12/23 05:10 Pulse 84 01/12/23 05:10 Resp 18 01/12/23 05:10 BP 161/62 H 01/12/23 05:10 Pulse Ox 96 01/12/23 05:10 O2 Del Method Room Air 01/12/23 05:10 BMI result Body Mass Index 34.0 Appearance: Alert. Oriented X3. No acute distress. CVS: Normal heart rate and rhythm. Pulses normal. Respiratory: No respiratory distress. Equal air entry bilateral, Abdomen: Soft and nontender. Bowel sounds are present, suprapubic catheter site visible Skin: Skin warm and dry. Normal skin color. Normal skin turgor. Neuro: Oriented X 3. Medical Decision Making Medical Decision Making MDM Narrative: Patient with recent dislodgement of suprapubic catheter which was replaced using 16 [place] catheter with good urine return Procedures Catheter Insertion (Urinary) Date of insertion: 01/12/23 Time of insertion: 05:00 Reason for placing: Yes Reason for placing indwelling catheter: Acute urinary retention Bladder scan/ultrasound used before catheterization: No Antiseptic solution prep: Povidone-Iodine Topical anesthesia used: No Catheter type/location: Suprapubic Size ([place]): 16 Catheter balloon size (mL): 10 Catheter balloon amount: 10 Procedure performed: without complications Discharge Plan Discharge Clinical Impression: Suprapubic catheter Patient Disposition: Home, Self-Care Instructions: How to Care for Your Suprapubic Catheter (DC) Additional Instructions: Care of suprapubic catheter as advised Continue antibiotics as prescribed and follow with the urologist Prescriptions: No Action aspirin 325 mg Tablet 325 mg PO DAILY dantrolene 25 mg capsule 10 mg PO .0800+1400 finasteride 5 mg tablet 5 mg PO BEDTIME omeprazole 40 mg capsule,delayed release(DR/EC) 40 mg PO DAILY baclofen 10 mg tablet 10 mg PO TID diltiazem HCl 360 mg capsule,extended release 24 hr 360 mg PO DAILY amlodipine 10 mg tablet 10 mg PO DAILY ketoconazole 2 % shampoo 1 appl topical 2XW atorvastatin 40 mg tablet 40 mg PO DAILY diclofenac sodium 75 mg tablet,delayed release (DR/EC) 75 mg PO BID ascorbic acid (vitamin C) 1,000 mg tablet 1 g PO DAILY 90 Days Qty: 90 1RF methenamine hippurate 1 gram tablet 1 g PO DAILY 90 Days Qty: 90 1RF lorazepam 0.5 mg tablet 0.5 mg PO DAILY PRN pantoprazole 40 mg tablet,delayed release (DR/EC) 40 mg PO DAILY nystatin 100,000 unit/gram cream 1 appl topical BID nystatin 100,000 unit/gram powder topical BID PRN lactulose 10 gram/15 mL solution 10 g PO BID 30 Days Qty: 946 4RF losartan 50 mg tablet 75 mg PO DAILY gabapentin 600 mg tablet 600 mg PO DAILY fluoxetine 20 mg capsule 40 mg PO BID Interventions: ED Discharge Assessment Last Done: 01/12/23 05:51 Discharge Date/Time: 01/12/23 05:51
== END 2023-01-12 05:51 | disposition home or self-care (01) ==
PROVIDERS: Emergency Provider Internal Medicine; PCP Internal Medicine
DX: N39.0 Urinary tract infection, site not specified (principal); Z79.899 Other long term (current) drug therapy
CPT/HCPCS: 51702; 99283; 99284

== ENCOUNTER 2023-01-16 13:26 | Outpatient (AMB) | payer MEDICARE, OTHER, SELFPAY ==
--- NOTE | 2023-01-16 13:39 | MHC.OFFVIS ---
Intake Intake Visit Reasons: Cath review Intake Note: Patient is present to have catheter checked by Dr Maria Patient informed that he stopped the tamsulosin on Sunday and stopped Aspirin on Per dr maria instructions Allergies lisinopril Adverse Reaction (Intermediate, Verified 02/09/23 10:35) cough HPI HPI Comments History of Present Illness Details Dillon Treviño is a very pleasant male. He is a patient of Dr Lowe. He seen for the following urologic conditions - neurogenic bladder Suprapubic tube came out Replaced in emergency room Reviewed in office today and is stable Good flow Return in 1 month for catheter change Neurogenic Bladder: Urinary retention initially found progressive development over time - has hereditary paralysis. Known neurogenic bladder from prior urodynamics 2009 - has been optimized on outlet medication and detrol Imaging results 08/06 no hydronephrosis 08/07 , no hydronephrosis Treatments - Botox January 2021 Current recommendations for double voiding and timed voiding to maintain bladder emptying PFSH Medical History History of electroconvulsive therapy Spastic paraplegia, hereditary Ataxia Arthritis Low back pain History of CVA (cerebrovascular accident) Cellulitis Balance problem Wheelchair dependence CATALINA on CPAP Depression OAB (overactive bladder) BPH (benign prostatic hyperplasia) GERD (gastroesophageal reflux disease) Elevated cholesterol HTN (hypertension) Surgical History Hx of eye surgery Hx of cystoscopy Hx of colonoscopy S/P patent foramen ovale closure Family History Father during operation Social History Are you a primary youth career specialist to a significant other at home: No Patient Tobacco Use Status: Never used Tobacco Substance Use Type: Marijuana Advance Directives Date on File: 01/08/23 Review of Systems Const Denies chills and Denies fever(s) Card Reports no additional complaints and Denies syncope Resp Denies cough GI Denies abdominal pain and Denies heartburn Reports as per HPI and Denies change in libido Neuro Denies syncope Psych Denies change in libido Endo Denies change in libido Physical Exam Const General: cooperative, healthy appearing, comfortable and no acute distress Orientation/consciousness: patient oriented x3 HEENT Face and sinus: Yes normal facial exam Mouth: moist mucous membranes Neck Neck: Yes normal visual inspection, Yes full ROM and Yes trachea midline Chest Chest palpation & inspection: normal inspection of the chest Resp Effort & Inspection: normal respiratory effort, able to speak in complete sentences and no respiratory distress GI Inspection: Yes normal to inspection Back/Spine/Pelvis Cervical Spine: normal cervical lordosis Thoracic/Lumbar Spine: thoracic and lumbar spine normal to inspection Skin General skin exam: no rashes or lesions noted Neuro General: patient oriented x3, gait normal, tone normal and moves all extremities Extrem General: Yes normal to inspection and Yes capillary refill normal Assessment & Plan Assessment & Plan (1) Neurogenic urinary bladder disorder: Comment: Botox January 2021 Code(s): N31.9 - Neuromuscular dysfunction of bladder, unspecified Plan Exchange in 1 month Patient Instructions: Imaging studies, laboratory and physical exam results were discussed and reviewed in detail. No major barriers to patient understanding were identified. An opportunity to ask questions regarding the treatment plan was provided. All questions were answered. The patient expressed understanding and agreement with the above treatment plan. The patient is aware they should contact our office by phone for worsening of their current condition or the appearance of new urologic symptoms. Compliance is encouraged with any medications and followup testing that is ordered. It is a privilege to participate in the urologic care of your patient. If you have any questions or concerns regarding treatment for the above conditions, or other urologic issues, please do not hesitate to contact me. The office telephone contact is [phone]. This note is constructed using voice recognition software. While every effort has been made to ensure accuracy guide escort errors may have been included. Yours sincerely, Dr Jermain Maria MD, [facility] - Urology Providers of Expert, Compassionate Care for the Genitourinary System Coding Level of Care Code Est Pt Level 3 (88892) Diagnoses Neurogenic urinary bladder disorder N31.9
== END 2023-01-16 15:14 | disposition home or self-care (01) ==
PROVIDERS: PCP Internal Medicine; Visit Provider Urology
DX: N31.9 Neuromuscular dysfunction of bladder, unspecified (principal)
CPT/HCPCS: 99213

== ENCOUNTER → 2023-01-16 13:26 | Outpatient (BNVA) | payer MEDICARE, OTHER, SELFPAY | PROVIDERS: PCP Internal Medicine; Visit Provider Urology | DX: N31.9 Neuromuscular dysfunction of bladder, unspecified (principal) | CPT/HCPCS: 99212 ==

== ENCOUNTER 2023-02-09 10:16 | Outpatient (AMB) | payer MEDICARE, OTHER, SELFPAY ==
--- NOTE | 2023-02-09 10:17 | A.OFFVIS_ITS ---
Intake Intake Visit Reasons: spt change (first) Allergies lisinopril Adverse Reaction (Intermediate, Verified 02/09/23 10:35) cough HPI HPI Comments History of Present Illness Details Dillon Treviño is a very pleasant male. He is a patient of Dr Lowe. 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 Known neurogenic bladder from prior urodynamics 2009 - has been optimized on outlet medication and detrol Imaging results 08/06 no hydronephrosis 08/07 , no hydronephrosis Treatments - Botox January 2021 Current recommendations for double voiding and timed voiding to maintain bladder emptying PFSH Medical History History of electroconvulsive therapy Spastic paraplegia, hereditary Ataxia Arthritis Low back pain History of CVA (cerebrovascular accident) Cellulitis Balance problem Wheelchair dependence CATALINA on CPAP Depression OAB (overactive bladder) BPH (benign prostatic hyperplasia) GERD (gastroesophageal reflux disease) Elevated cholesterol HTN (hypertension) Surgical History Hx of eye surgery Hx of cystoscopy Hx of colonoscopy S/P patent foramen ovale closure Family History Father during operation Social History Are you a primary healthcare financial analyst to a significant other at home: No Patient Tobacco Use Status: Never used Tobacco Substance Use Type: Marijuana Advance Directives Date on File: 01/08/23 Review of Systems Const Denies chills and Denies fever(s) Card Reports no additional complaints and Denies syncope Resp Denies cough GI Denies abdominal pain and Denies heartburn Reports as per HPI and Denies change in libido Neuro Denies syncope Psych Denies change in libido Endo Denies change in libido Physical Exam Const General: cooperative, healthy appearing, comfortable and no acute distress Orientation/consciousness: patient oriented x3 HEENT Face and sinus: Yes normal facial exam Mouth: moist mucous membranes Neck Neck: Yes normal visual inspection, Yes full ROM and Yes trachea midline Chest Chest palpation & inspection: normal inspection of the chest Resp Effort & Inspection: normal respiratory effort, able to speak in complete sentences and no respiratory distress GI Inspection: Yes normal to inspection Back/Spine/Pelvis Cervical Spine: normal cervical lordosis Thoracic/Lumbar Spine: thoracic and lumbar spine normal to inspection Skin General skin exam: no rashes or lesions noted Neuro General: patient oriented x3, gait normal, tone normal and moves all extremities Extrem General: Yes normal to inspection and Yes capillary refill normal Office Procedures Bladder/Catheter Procedure Details: Suprapubic change Clean technique Eighteen Lao [id number] of bladder tube Procedure code (CPT) selection complete Assessment & Plan Assessment & Plan (1) Urinary urgency: Code(s): R39.15 - Urgency of urination (2) Neurogenic urinary bladder disorder: Comment: Botox January 2021 Code(s): N31.9 - Neuromuscular dysfunction of bladder, unspecified Plan One month follow-up Patient Instructions: Imaging studies, laboratory and physical exam results were discussed and reviewed in detail. No major barriers to patient understanding were identified. An opportunity to ask questions regarding the treatment plan was provided. All questions were answered. The patient expressed understanding and agreement with the above treatment plan. The patient is aware they should contact our office by phone for worsening of their current condition or the appearance of new urologic symptoms. Compliance is encouraged with any medications and followup testing that is ordered. It is a privilege to participate in the urologic care of your patient. If you h ave any questions or concerns regarding treatment for the above conditions, or other urologic issues, please do not hesitate to contact me. The office telephone contact is [phone]. This note is constructed using voice recognition software. While every effort has been made to ensure accuracy radio survey worker errors may have been included. Yours sincerely, Dr Jermain Gutierrez MD, [facility] - Urology Providers of Expert, Compassionate Care for the Genitourinary System Coding Level of Care Code Est Pt Level 3 (02210) Diagnoses Urinary urgency R39.15 Neurogenic urinary bladder disorder N31.9 CPT Codes Bladder/Catheter Procedure - CPT: 33635-[id number] of bladder tube ([id number])
== END 2023-02-09 11:06 | disposition home or self-care (01) ==
PROVIDERS: PCP Family Medicine; Visit Provider Urology
DX: R39.15 Urgency of urination (principal); N31.9 Neuromuscular dysfunction of bladder, unspecified; Z96.0 Presence of urogenital implants
CPT/HCPCS: 51705; 99213

== ENCOUNTER → 2023-02-09 10:16 | Outpatient (BNVA) | payer MEDICARE, OTHER, SELFPAY | PROVIDERS: PCP Family Medicine; Visit Provider Urology | DX: R39.15 Urgency of urination (principal); N31.9 Neuromuscular dysfunction of bladder, unspecified | CPT/HCPCS: 51705; 99212 ==

== ENCOUNTER → 2023-03-07 11:19 | Outpatient (BNVA) | payer MEDICARE, OTHER, SELFPAY | PROVIDERS: PCP Family Medicine; Visit Provider Urology | DX: Z43.5 Encounter for attention to cystostomy (principal); N31.9 Neuromuscular dysfunction of bladder, unspecified | CPT/HCPCS: 51705 ==

== ENCOUNTER 2023-08-07 11:34 | Outpatient (AMB) | payer MEDICARE, OTHER, SELFPAY ==
--- NOTE | 2023-08-07 11:44 | MHC.OFFVIS ---
Intake Visit Reasons: 6m follow up Intake Note: Patient is Present for Follow Up Urology Medication: Methenamine, Vitamin C Antibiotic Allergies: None Blood Thinners:Aspirn Allergies lisinopril Adverse Reaction (Intermediate, Verified 08/07/23 11:45) cough Medication List - Last Reconciled 08/07/23 by Jermain Gutierrez MD ascorbic acid (vitamin C) 1 g PO DAILY 90 days aspirin 325 mg PO DAILY atorvastatin 40 mg PO DAILY baclofen 10 mg PO TID dantrolene 10 mg PO .0800+1400 diltiazem HCl ER 360 mg PO DAILY fluoxetine 40 mg PO BID lactulose 10 grams (15 mL) PO BID 30 days levofloxacin 500 mg PO DAILY 3 days lorazepam 0.5 mg PO DAILY PRN losartan 75 mg PO DAILY methenamine hippurate 1 g PO DAILY 90 days omeprazole 40 mg PO DAILY HPI Comments Details: Dillon Treviño is a very pleasant male. He is a patient of Dr Lowe. He seen for the following urologic conditions - neurogenic bladder Suprapubic tube six-month follow-up Eighteen Israeli regular catheter VNA has been changing Continue 6 month review Continue methenamine and vitamin-C which has minimized infection Does have occasional spasm when bladder empty Discussed doing PT with a mildly for bladder Discussed swimming. That would require removal of catheter. Placement of Tegaderm and new catheter once complete activity. 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 Known neurogenic bladder from prior urodynamics 2009 - has been optimized on outlet medication and detrol Imaging results 08/06 [place] no hydronephrosis 08/07 , no hydronephrosis Treatments - Botox January 2021 Current recommendations for double voiding and timed voiding to maintain bladder emptying [facility] Medical History History of electroconvulsive therapy Spastic paraplegia, hereditary Ataxia Arthritis Low back pain History of CVA (cerebrovascular accident) Cellulitis Balance problem Wheelchair dependence CATALINA on CPAP Depression OAB (overactive bladder) BPH (benign prostatic hyperplasia) GERD (gastroesophageal reflux disease) Elevated cholesterol HTN (hypertension) Surgical History Hx of eye surgery Hx of cystoscopy Hx of colonoscopy S/P patent foramen ovale closure Family History Father during operation Social History Are you a primary direct care counselor to a significant other at home: No Patient Tobacco Use Status: Never used Tobacco Substance Use Type: Marijuana Advance Directives Date on File: 01/08/23 Review of Systems Const Denies chills and Denies fever(s) Card Reports no additional complaints and Denies syncope Resp Denies cough GI Denies abdominal pain and Denies heartburn Reports as per HPI and Denies change in libido Neuro Denies syncope Psych Denies change in libido Endo Denies change in libido Physical Exam Const General: cooperative, healthy appearing, comfortable and no acute distress Orientation/consciousness: patient oriented x3 HEENT Face and sinus: Yes normal facial exam Mouth: moist mucous membranes Neck Neck: Yes normal visual inspection, Yes full ROM and Yes trachea midline Chest Chest palpation & inspection: normal inspection of the chest Resp Effort & Inspection: normal respiratory effort, able to speak in complete sentences and no respiratory distress GI Inspection: Yes normal to inspection Back/Spine/Pelvis Cervical Spine: normal cervical lordosis Thoracic/Lumbar Spine: thoracic and lumbar spine normal to inspection Skin General skin exam: no rashes or lesions noted Neuro General: patient oriented x3, gait normal, tone normal and moves all extremities Extrem General: Yes normal to inspection and Yes capillary refill normal Assessment & Plan Assessment & Plan (1) Neurogenic urinary bladder disorder: Comment: Botox January 2021 Code(s): N31.9 - Neuromuscular dysfunction of bladder, unspecified Category: Medical Plan Six-month follow-up Medications: New levofloxacin 500 mg PO DAILY 3 tabs 0RF 3 days N31.9 - Neuromuscular dysfunction of bladder, unspecified, N41.9 - Inflammatory disease of prostate, unspecified Patient Instructions: Imaging studies, laboratory and physical exam results were discussed and reviewed in detail. No major barriers to patient understanding were identified. An opportunity to ask questions regarding the treatment plan was provided. All questions were answered. The patient expressed understanding and agreement with the above treatment plan. The patient is aware they should contact our office by phone for worsening of their current condition or the appearance of new urologic symptoms. Compliance is encouraged with any medications and followup testing that is ordered. It is a privilege to participate in the urologic care of your patient. If you have any questions or concerns regarding treatment for the above conditions, or other urologic issues, please do not hesitate to contact me. The office telephone contact is [phone]. This note is constructed using voice recognition software. While every effort has been made to ensure accuracy civil preparedness training officer errors may have been included. Yours sincerely, Dr Jermain Gutierrez MD, [facility] - Urology Providers of Expert, Compassionate Care for the Genitourinary System Coding Level of Care Code Est Pt Level 4 (02478) Diagnoses Neurogenic urinary bladder disorder N31.9
== END 2023-08-07 12:35 | disposition home or self-care (01) ==
PROVIDERS: PCP Family Medicine; Visit Provider Urology
DX: N31.9 Neuromuscular dysfunction of bladder, unspecified (principal)
CPT/HCPCS: 99213

== ENCOUNTER → 2023-08-07 11:34 | Outpatient (BNVA) | payer MEDICARE, OTHER, SELFPAY | PROVIDERS: PCP Family Medicine; Visit Provider Urology | DX: N31.9 Neuromuscular dysfunction of bladder, unspecified (principal) | CPT/HCPCS: 99212 ==

== ENCOUNTER 2024-02-08 14:20 | Outpatient (AMB) | payer MEDICARE, OTHER, SELFPAY ==
--- NOTE | 2024-02-08 14:20 | MHC.OFFVIS ---
Intake Visit Reasons: 6m follow up/catheter change Intake Note: Patient is present for 6M F/U CATHETER CHANGE Urology Medication:VITAMIN C, METHENAMINE HIPPURATE,LEVOFLOXACIN Antibiotic Allergy:NONE Blood Thinner:ASPIRIN Clinical Biostatistics Director Required: No Allergies lisinopril Adverse Reaction (Intermediate, Verified 02/08/24 14:21) cough HPI Comments Details: Dillon Treviño is a very pleasant male. He is a patient of Dr Lowe. He seen for the following urologic conditions - neurogenic bladder Suprapubic tube six-month follow-up Eighteen Bulgarian regular catheter VNA has been changing Continue 6 month review Continue methenamine and vitamin-C which has minimized infection Does have occasional spasm when bladder empty Discussed doing PT with a mildly for bladder Discussed swimming. That would require removal of catheter. Placement of Tegaderm and new catheter once complete activity. 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 Known neurogenic bladder from prior urodynamics 2009 - has been optimized on outlet medication and detrol Imaging results 08/06 no hydronephrosis 08/07 , no hydronephrosis Treatments - Botox January 2021 Current recommendations for double voiding and timed voiding to maintain bladder emptying PFSH Medical History History of electroconvulsive therapy Spastic paraplegia, hereditary Ataxia Arthritis Low back pain History of CVA (cerebrovascular accident) Cellulitis Balance problem Wheelchair dependence CATALINA on CPAP Depression OAB (overactive bladder) BPH (benign prostatic hyperplasia) GERD (gastroesophageal reflux disease) Elevated cholesterol HTN (hypertension) Surgical History Hx of eye surgery Hx of cystoscopy Hx of colonoscopy S/P patent foramen ovale closure Family History Father during operation Social History Are you a primary tire care manager to a significant other at home: No Patient Tobacco Use Status: Never used Tobacco Substance Use Type: Marijuana Advance Directives Date on File: 01/08/23 Review of Systems Const Denies chills and Denies fever(s) Card Reports no additional complaints and Denies syncope Resp Denies cough GI Denies abdominal pain and Denies heartburn Reports as per HPI and Denies change in libido Neuro Denies syncope Psych Denies change in libido Endo Denies change in libido Physical Exam Const General: cooperative, healthy appearing, comfortable and no acute distress Orientation/consciousness: patient oriented x3 HEENT Face and sinus: Yes normal facial exam Mouth: moist mucous membranes Neck Neck: Yes normal visual inspection, Yes full ROM and Yes trachea midline Chest Chest palpation & inspection: normal inspection of the chest Resp Effort & Inspection: normal respiratory effort, able to speak in complete sentences and no respiratory distress GI Inspection: Yes normal to inspection Back/Spine/Pelvis Cervical Spine: normal cervical lordosis Thoracic/Lumbar Spine: thoracic and lumbar spine normal to inspection Skin General skin exam: no rashes or lesions noted Neuro General: patient oriented x3, gait normal, tone normal and moves all extremities Extrem General: Yes normal to inspection and Yes capillary refill normal Assessment & Plan Assessment & Plan (1) Neurogenic urinary bladder disorder: Comment: Botox January 2021 Code(s): N31.9 - Neuromuscular dysfunction of bladder, unspecified Category: Medical Plan Six-month follow-up Medications: Changed From levofloxacin 500 mg PO DAILY 3 days 3 tabs 0RF N31.9 - Neuromuscular dysfunction of bladder, unspecified, N41.9 - Inflammatory disease of prostate, unspecified To levofloxacin 500 mg PO DAILY 7 tabs 1RF 7 days N31.9 - Neuromuscular dysfunction of bladder, unspecified, N41.9 - Inflammatory disease of prostate, unspecified Refilled ascorbic acid (vitamin C) 1 g PO DAILY 90 tabs 1RF 90 days N31.9 - Neuromuscular dysfunction of bladder, unspecified, N39.0 - Urinary tract infection, site not specified methenamine hippurate 1 g PO DAILY 90 tabs 1RF 90 days N31.9 - Neuromuscular dysfunction of bladder, unspecified, N39.0 - Urinary tract infection, site not specified Patient Instructions: Imaging studies, laboratory and physical exam results were discussed and reviewed in detail. No major barriers to patient understanding were identified. An opportunity to ask questions regarding the treatment plan was provided. All questions were answered. The patient expressed understanding and agreement with the above treatment plan. The patient is aware they should contact our office by phone for worsening of their current condition or the appearance of new urologic symptoms. Compliance is encouraged with any medications and followup testing that is ordered. It is a privilege to participate in the urologic care of your patient. If you have any questions or concerns regarding treatment for the above conditions, or other urologic issues, please do not hesitate to contact me. The office telephone contact is [phone]. This note is constructed using voice recognition software. While every effort has been made to ensure accuracy assistant site manager errors may have been included. Yours sincerely, Dr Jermain Gutierrez MD, [facility] - Urology Providers of Expert, Compassionate Care for the Genitourinary System Coding Level of Care Code Est Pt Level 3 (77803) Diagnoses Neurogenic urinary bladder disorder N31.9
--- OUTSIDE RECORDS SUMMARY | 2024-02-08 14:22 | XMS_ITS | Continuity of Care Document ---
Author Organization [facility] Address [address] [place] [address] [address] [place] [address]- Care Team Providers Care Field Nurse Name Role Phone Atilio Barroso MD [id number]): [facility]21[facility]23 - 01/20/24 [facility] [address] [place] [address] [place], [place] [address] Encounter Type: Triage Allergies, Adverse Reactions, Alerts Substance Criticality Severity Reaction Reaction Severity Status lisinopril COUGHING Active Immunizations Given and Recorded Vaccine Date Status Refusal Reason SARS-CoV-2 (COVID-19) mRNA BNT-162b2 vac 11/16/20 Recorded SARS-CoV-2 (COVID-19) mRNA BNT-162b2 vac 04/16/20 Recorded SARS-CoV-2 (COVID-19) mRNA BNT-162b2 vac 03/26/20 Recorded Medications aspirin 325 mg oral delayed release tablet 325 mg, 1, tablet, By Mouth, Daily at bedtime, Refills 0, Maintenance, 03/25/21 5:40:00 PM EST, Partial fill upon patient request if the prescription is for a schedule II opioid drug. Start Date: 03/25/21 Status: Ordered Repeat number: 1 atorvastatin 40 mg oral tablet 1 tablet = 40 mg, By Mouth, Daily at bedtime, (LAST FILLED 07/17/22 90 FOR 90 DAYS), 5 Refills, Maintenance, 09/20/22 11:33:00 AM EDT, Tablet, Partial fill upon patient request if the prescription is for a schedule II opioid drug. Start Date: 09/20/22 Status: Ordered Repeat number: 1 baclofen 10 mg oral tablet 20 mg, 2, tablet, By Mouth, Daily, IN THE EVENING (LAST FILLED 07/16/22 270 FOR 90 DAYS), Maintenance, 09/20/22 12:25:00 PM EDT, Partial fill upon patient request if the prescription is for a schedule II opioid drug. Start Date: 09/20/22 Status: Ordered Repeat number: 1 baclofen 10 mg oral tablet 10 mg, 1, tablet, By Mouth, Daily in AM, (LAST FILLED 07/16/22 270 FOR 90 DAYS), Refills 0, Maintenance, 04/25/21 1:14:00 PM EST, Partial fill upon patient request if the prescription is for a schedule II opioid drug. Start Date: 04/25/21 Status: Ordered Repeat number: 1 bethanechol 50 mg oral tablet 1 tablet = 50 mg, By Mouth, 2 times a day, (LAST FILLED 07/21/22 120 FOR 60 DAYS WITH NO REFILLS), Maintenance, 09/20/22 12:26:00 PM EDT, Partial fill upon patient request if the prescription is for a schedule II opioid drug. Start Date: 09/20/22 Status: Ordered Repeat number: 1 celecoxib 100 mg oral capsule 0 Refills, Maintenance, 09/06/23 12:15:00 PM EDT, Partial fill upon patient request if the prescription is for a schedule II opioid drug. Start Date: 09/06/23 Status: Ordered Repeat number: 1 cephalexin monohydrate 500 mg oral capsule 1 capsule = 500 mg, By Mouth, Every 12 hours, (LAST FILLED 07/16/22 180 FOR 90 DAYS), 0 Refills, Maintenance, 09/20/22 11:33:00 AM EDT, Capsule, Partial fill upon patient request if the prescription is for a schedule II opioid drug. Start Date: 09/20/22 Status: Ordered Repeat number: 1 Cranberry 0 Refills, Maintenance, 09/06/23 12:16:00 PM EDT, Partial fill upon patient request if the prescription is for a schedule II opioid drug. Start Date: 09/06/23 Status: Ordered Repeat number: 1 DilTIAZem (Eqv-Tiazac) 360 mg/24 hours oral capsule, extended release 1 capsule = 360 mg, By Mouth, Daily, (LAST FILLED 06/21/22 90 FOR 90 DAYS), 0 Refills, Maintenance, 03/25/21 5:35:00 PM EST, Partial fill upon patient request if the prescription is for a schedule II opioid drug. Start Date: 03/25/21 Status: Ordered Repeat number: 1 docusate sodium 100 mg oral capsule 100 mg, 1, capsule, By Mouth, Daily, Refills 0, Maintenance, 03/25/21 5:38:00 PM EST, Partial fill upon patient request if the prescription is for a schedule II opioid drug. Start Date: 03/25/21 Status: Ordered Repeat number: 1 finasteride 5 mg oral tablet 1 tablet = 5 mg, By Mouth, Daily, (FILLED 07/17/22 90 FOR 90 DAYS), Maintenance, 09/20/22 12:13:00 PM EDT, Tablet, Partial fill upon patient request if the prescription is for a schedule II opioid drug. Start Date: 09/20/22 Status: Ordered Repeat number: 1 FLUoxetine 20 mg oral capsule 80 mg, 4, capsule, By Mouth, Daily, (LAST FILLED 08/07/22 360 FOR 90 DAYS), Refills 0, Maintenance, 09/20/22 11:32:00 AM EDT, Partial fill upon patient request if the prescription is for a schedule II opioid drug. Start Date: 09/20/22 Status: Ordered Repeat number: 1 furosemide 20 mg oral tablet 20 mg, 1, tablet, By Mouth, 2 times a day, (LAST FILLED 07/21/22 60 FOR 30 DAYS), Refills 0, Maintenance, 09/20/22 11:32:00 AM EDT, Partial fill upon patient request if the prescription is for a scheduleII opioid drug. Start Date: 09/20/22 Status: Ordered Repeat number: 1 lactulose 10 gm/15 ml oral syrup 15 mL = 10 Gm, By Mouth, 2 times a day, (LAST FILLED 06/04/22 FOR 946 ML), 0 Refills, Maintenance, 04/25/21 1:14:00 PM EST, Syrup, Partial fill upon patient request if the prescription is for a scheduleII opioid drug. Start Date: 04/25/21 Status: Ordered Repeat number: 1 LORazepam 0.5 mg oral tablet 1 tablet = 0.5 mg, By Mouth, Daily, PRN Anxiety, (LAST FILLED 08/17/22 FOR 30 TABS), 0 Refills, Maintenance, 04/25/21 1:15:00 PM EST, Tablet, Partial fill upon patient request if the prescription is fora schedule II opioid drug. Start Date: 04/25/21 Status: Ordered Repeat number: 1 losartan 100 mg oral tablet 1 tablet = 100 mg, By Mouth, Daily, (LAST FILLED 06/23/22 90 FOR 90 DAYS), Maintenance, 09/20/22 12:22:00 PM EDT, Tablet, Partial fill upon patient request if the prescription is for a schedule II opioiddrug. Start Date: 09/20/22 Status: Ordered Repeat number: 1 methenamine hippurate 1 gm oral tablet 0 Refills, Maintenance, 09/06/23 12:15:00 PM EDT, Partial fill upon patient request if the prescription is for a schedule II opioid drug. Start Date: 09/06/23 Status: Ordered Repeat number: 1 mirtazapine 15 mg oral tablet 0 Refills, Maintenance, 09/06/23 12:15:00 PM EDT, Partial fill upon patient request if the prescription is for a schedule II opioid drug. Start Date: 09/06/23 Status: Ordered Repeat number: 1 omeprazole 40 mg oral enteric coated capsule 1 capsule = 40 mg, By Mouth, Daily at bedtime, (LAST FILLED 07/16/22 90 FOR 90 DAYS), 0 Refills, Maintenance, 09/20/22 11:33:00 AM EDT, EC Capsule, Partial fill upon patient request if the prescription is for a schedule II opioid drug. Start Date: 09/20/22 Status: Ordered Repeat number: 1 tamsulosin 0.4 mg oral capsule 0.8 mg, 2, capsule, By Mouth, Daily at bedtime, (LAST FILLED 06/21/22 180 FOR 90 DAYS), Refills 0, Maintenance, 04/25/21 1:15:00 PM EST, Partial fill upon patient request if the prescription is for a schedule II opioid drug. Start Date: 04/25/21 Status: Ordered Repeat number: 1 Vitamin C By Mouth, Daily, 0 Refills, Maintenance, 09/06/23 12:16:00 PM EDT, Partial fill upon patient requestif the prescription is for a schedule II opioid drug. Start Date: 09/06/23 Status: Ordered Repeat number: 1 Problem List Condition Confirmation Course Effective Dates Status Health St atus Informant Recurrent cellulitis of lower extremity Confirmed Active Infected epidermal inclusion cyst left upper back Confirmed Active Left foot pain Confirmed Active Hereditary spastic paraplegia Confirmed Active Lymphedema, limb Confirmed Active Obese class II Confirmed Active Counseling for travel Confirmed Active Spasticity Confirmed Active Social History Social History Type Response Smoking Status Never smoker entered on: 05/18/17 Sex Sex Representation Male (finding) Patient Care team information Care Team Personnel Name: Nell Shin RN Position: [facility] RN Member Role: Primary Care Nurse Name: Briana Pepper RN Position: [facility] RN Member Role: Primary Care Nurse Name: Sue Del Rio RN Position: [facility] RN Member Role: Primary Care Nurse Name: Jessica Alexander RN Position: [facility] AMB Nurse Member Role: Primary Care Nurse Name: Mireille Myles RN Position: [facility] RN Member Role: Primary Care Nurse Name: Muna Chicas RN Position: [facility] RN Member Role: Primary Care Nurse Name: Shelia Lebron RN Position: [facility] RN Member Role: Primary Care Nurse Name: Niki Gabriel RN Position: [facility] RN Member Role: Primary Care Nurse Name: Tonia Cruz Position: [facility] Outreach Member Role: Lifetime Consulting Physician Name: Atilio Barroso MD Position: [facility] Physician - Primary Care Member Role: PCP Address: [address] [place] [address] Telecom: Name: Anatoly Fonseca Position: [facility] Outreach Member Role: Lifetime Consulting Physician Care Team Related Persons Name: FABRICIO SIERRA Name: TASNEEM SIERRA Insurance Providers Guarantor name: ISAI SIERRA Health Plan Information #: 1 Payer: MEDICARE PART B OUTPT Member Number: NA Policy Number: NA Group Number: NA Health Plan Information #: 2 Payer: [facility] OPT Member Number: NA Policy Number: NA Group Number: NA
== END 2024-02-08 15:13 | disposition home or self-care (01) ==
PROVIDERS: PCP Family Medicine; Visit Provider Urology
DX: N31.9 Neuromuscular dysfunction of bladder, unspecified (principal)
CPT/HCPCS: 99213

== ENCOUNTER → 2024-02-08 14:20 | Outpatient (BNVA) | payer MEDICARE, OTHER, SELFPAY | PROVIDERS: PCP Family Medicine; Visit Provider Urology | DX: N31.9 Neuromuscular dysfunction of bladder, unspecified (principal) | CPT/HCPCS: 99212 ==

== ENCOUNTER 2024-07-10 10:49 | Outpatient (AMB) | payer MEDICARE, OTHER, SELFPAY ==
--- NOTE | 2024-07-10 11:23 | A.OFFVIS_ITS ---
Intake Visit Reasons: Er follow up UTI Intake Note: Patient is present for ER F/U Urology Medication:VITAMIN C,METHENAMINE HIPPURATE,LACTULOSE Antibiotic Allergy:NONE Blood Thinner:NONE Senior Merchandiser Required: No Allergies lisinopril Adverse Reaction (Intermediate, Verified 07/10/24 11:29) cough HPI Comments Details: Dillon Treviño is a very pleasant male. He is a patient of Dr Lowe. He seen for the following urologic conditions - neurogenic bladder Suprapubic tube six-month follow-up Eighteen [place] regular catheter VNA has been changing Recent urinary tract infection with confusion Hospital admission 7 days Rehab admission 7 days Unfortunately admission notes and any culture results were not forwarded to me from [facility] Has recovered Also with some degree of warmth on right leg Size unchanged Remains on baseline Keflex for cellulitis Has upcoming appointment with infectious disease Had some discussion of fosfomycin use given antibiotic resistance These are good questions for Infectious Disease Suprapubic tube change today in office without difficulty Continue methenamine and vitamin-C which has minimized infection Using lactulose for constipation Does have occasional spasm when bladder empty Background of hereditary paralysis Previous management had included - finasteride with tamsulosin for prostate relaxation - 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 Known neurogenic bladder from prior urodynamics 2009 - has been optimized on outlet medication and detrol Imaging results 08/06 no hydronephrosis 08/07 , no hydronephrosis Treatments - Botox January 2021 Current recommendations for double voiding and timed voiding to maintain bladder emptying PFSH Medical History History of electroconvulsive therapy Spastic paraplegia, hereditary Ataxia Arthritis Low back pain History of CVA (cerebrovascular accident) Cellulitis Balance problem Wheelchair dependence CATALINA on CPAP Depression OAB (overactive bladder) BPH (benign prostatic hyperplasia) GERD (gastroesophageal reflux disease) Elevated cholesterol HTN (hypertension) Surgical History Hx of eye surgery Hx of cystoscopy Hx of colonoscopy S/P patent foramen ovale closure Family History Father during operation Social History Are you a primary director of career resources to a significant other at home: No Patient Tobacco Use Status: Never used Tobacco Substance Use Type: Marijuana Advance Directives Date on File: 01/08/23 Review of Systems Const Denies chills and Denies fever(s) Card Reports no additional complaints and Denies syncope Resp Denies cough GI Denies abdominal pain and Denies heartburn Reports as per HPI and Denies change in libido Neuro Denies syncope Psych Denies change in libido Endo Denies change in libido Physical Exam Const General: cooperative, healthy appearing, comfortable and no acute distress Orientation/consciousness: patient oriented x3 HEENT Face and sinus: Yes normal facial exam Mouth: moist mucous membranes Neck Neck: Yes normal visual inspection, Yes full ROM and Yes trachea midline Chest Chest palpation & inspection: normal inspection of the chest Resp Effort & Inspection: normal respiratory effort, able to speak in complete sentences and no respiratory distress GI Inspection: Yes normal to inspection Back/Spine/Pelvis Cervical Spine: normal cervical lordosis Thoracic/Lumbar Spine: thoracic and lumbar spine normal to inspection Skin General skin exam: no rashes or lesions noted Neuro General: patient oriented x3, gait normal, tone normal and moves all extremities Extrem General: Yes normal to inspection and Yes capillary refill normal Office Procedures Bladder/Catheter Procedure Details: 18 [place]itan suprapubic tube Deflated and exchanged without difficulty Clean technique Betadine swab [id number] of bladder tube Procedure code (CPT) selection complete Assessment & Plan Assessment & Plan (1) Neurogenic urinary bladder disorder: Comment: Botox January 2021 Code(s): N31.9 - Neuromuscular dysfunction of bladder, unspecified Category: Medical Plan Six-month follow-up Orders: Orders AMB Bladder/Catheter Procedure Today N31.9 - Neuromuscular dysfunction of bladder, unspecified Patient Instructions: This note is constructed using voice recognition software. While every effort has been made to ensure accuracy equipment mechanic errors may have been included. Imaging studies, laboratory and physical exam results were discussed and reviewed in detail. No major barriers to patient understanding were identified. An opportunity to ask questions regarding the treatment plan was provided. All questions were answered. The patient expressed understanding and agreement with the above treatment plan. The patient is aware they should contact our office by phone for worsening of their current condition or the appearance of new urologic symptoms. Compliance is encouraged with any medications and followup testing that is ordered. It is a privilege to participate in the urologic care of your patient. If you have any questions or concerns regarding treatment for the above conditions, or other urologic issues, please do not hesitate to contact me. The office telephone contact is [phone]. Sincerely, Dr Jermain Gutierrez MD, ROBIN [facility] - Urology Compassionate Specialist Care for the Genitourinary System Coding Level of Care Code Est Pt Level 3 (86498) Complex EM visit Add On G2211 Diagnoses Neurogenic urinary bladder disorder N31.9 CPT Codes Bladder/Catheter Procedure - CPT: 30597-Pvqhko of bladder tube ([id number])
--- OUTSIDE RECORDS SUMMARY | 2024-07-10 11:32 | XMS_ITS | Referral Summary ---
Author Organization [facility] Address [address] [place] [address] Care Team Providers Care Research Staff Member Name Role Phone Atilio Lowe Primary Care Provider [phone] Social History Tobacco Use Types Packs/Day Years Used Date Smoking Tobacco: Never Assessed Sex and Gender Information Value Date Recorded Sex Assigned at Male 08/21/2022 12:55 PM EDT Legal Sex Male 10:35 AM EDT Gender Identity Male 08/21/2022 12:55 PM EDT Sexual Orientation Straight 08/21/2022 12 :55 PM EDT Plan of Treatment Not on file Insurance MEDICARE [facility] Care Teams Research Staff Member Relationship Specialty Start Date End Date Atilio Lowe [address] [place] [id number] PCP - General Internal Medicine 07/03/22
--- OUTSIDE RECORDS SUMMARY | 2024-07-10 11:32 | XMS_ITS | Encounter Summary ---
Author Organization [facility] Address [address] [place] [address] Care Team Providers Care Emt Paramedic Name Role Phone Atilio Lowe MD Primary Care Provider Encounter Details Date Type Department Care Team (Late st Contact Info) Description 05/29/2024 Lab Requisition [facility] - Main Lab [address] [facility] [place] [id number] Fabiana Odom MD [address] [address] Vitamin D deficiency, unspecified; Urinary tract infection, site not specified; Benign prostatic hyperplasia without lower urinary tract symptoms; Hyperlipidemia, unspecified Social History Tobacco Use Types Packs/Day Years Used Date Smoking Tobacco: Never Assessed Sex and Gender Information Value Date Recorded Sex Assigned at Male 01/22/2024 10:49 AM EST Legal Sex Male 6:12 AM EST Gender Identity Male 01/22/2024 10:49 AM EST Sexual Orientation Straight 05/22/2024 12 :44 PM EDT documented as of this encounter Plan of Treatment Not on file documented as of this encounter Goals Goal Patient Goal Type Associated Problems Recent Progress Patient-Stated? Author to reduce the size of my legs General On track(2024 4:15 PM EDT) Yes Alexandra Haji P, OTR/L Note: STG: patient will present with decreased size of both LE's ( minus total cirmcumferential measurements of at least 8 cm LTG : Patient will present with decrease size of both LE's ( minus total cirmcumferential measurements of at least 15 cm 04/29/2024 Total circumferences of right LE= 411.9 cm compared to last measured 02/24 Measurement was 429. 8 cm which means he decreased 17.9 cm Goal met Total circumferences of left LE = 402.6 cm compared to last measured 02/24 Was 417. 8 cm which means a decrease of 15.2 cm Goal met I don't know how to manage these swollen legs General No change(04/29 4:16 PM EDT) Yes Alexandra Haji, OTR/L Note: STG; Patient's will be able to demo application of multi layer short stretch compression bandages Patient will be able to demo HEP to increase lymph flow 04/10/2024 Patient's has been able to reapply multi layer short stretch compression bandages 04/10/2024 Patient is able to demo diaphragmatic breathing and gluteal sets he needs hand on assist for ankle pumps 2nd to tone LTG; patient will have appropriate compression in place ( = effective and patient's and healthcare liaison are independent in management of garments) 04/29/2024 Patient did not receive compression garments yet ; they are on back order My legs and feet are so big that I have a hard time doing what I need to do General Improving( 4:42 PM EST) Yes Alexandra Haji, OTR/L Note: STG: patient will be able to fit his feet into bike peddles ( at home) and he is able to perform HEP 04/10/2024 Patient has been able to fit into smaller pair of shoes as the swelling in his feet decreased LTG ; Patient' legs are smaller and he reports less pain / increased function which is reflected in decreased score in lymph edema life impact scale I am always having nicks on my legs and I have had many incidents of cellulitis General On track(2024 4:17 PM EDT) Yes Alexandra Haji, OTR/L Note: STG; Patient presents with healing skin ( fewer open areas) Patient developed blisters on right san which are healing NO remaining open areas LTG; Patient skin in both Lower legs have no remaining open areas 04/29/2024 Skin in both LE's have no open areas LTG met documented as of this encounter Procedures Procedure Name Priority Date/Time Associated Diagnosis Comments VITAMIN D 25 HYDROXY Routine 05/29/2024 6:55 AM EDT Vitamin D deficiency, unspecified Urinary tract infection, site not specified Benign prostatic hyperplasia without lower urinary tract symptoms Hyperlipidemia, unspecified COMPLETE BLOOD COUNT Routine 05/29/2024 6:55 AM EDT Vitamin D deficiency, unspecified Urinary tract infection, site not specified Benign prostatic hyperplasia without lower urinary tract symptoms Hyperlipidemia, unspecified THYROID STIMULATING HORMONE Routine 05/29/2024 6:55 AM EDT Vitamin D deficiency, unspecified Urinary tract infection, site not specified Benign prostatic hyperplasia without lower urinary tract symptoms Hyperlipidemia, unspecified MAGNESIUM Routine 05/29/2024 6:55 AM EDT Vitamin D deficiency, unspecified Urinary tract infection, site not specified Benign prostatic hyperplasia without lower urinary tract symptoms Hyperlipidemia, unspecified FOLATE Routine 05/29/2024 6:55 AM EDT Vitamin D deficiency, unspecified Urinary tract infection, site not specified Benign prostatic hyperplasia without lower urinary tract symptoms Hyperlipidemia, unspecified VITAMIN B12 Routine 05/29/2024 6:55 AM EDT Vitamin D deficiency, unspecified Urinary tract infection, site not specified Benign prostatic hyperplasia without lower urinary tract symptoms Hyperlipidemia, unspecified BASIC METABOLIC PANEL Routine 05/29/2024 6:55 AM EDT Vitamin D deficiency, unspecified Urinary tract infection, site not specified Benign prostatic hyperplasia without lower urinary tract symptoms Hyperlipidemia, unspecified documented in this encounter Results * Thyroid stimulating hormone (05/29/2024 6:55 AM EDT) TSH 3.88 0.40 - 4.00 mcIU/mL LAB CHEMISTRY METHOD 05/29/2024 4:02 PM EDT [facility] Blood Venous blood specimen / Unknown Venipuncture / Unknown 05/29/2024 6:55 AM EDT 05/29/2024 9:08 AM EDT Fabiana Odom MD LAB BLOOD ORDERABLES Fin al Result Performing Organization Address [facility] [address]/[facility] de Phone Number [facility] [address] [place] [address], [place] [phone] * (ABNORMAL) Vitamin D 25 hydroxy (05/29/2024 6:55 AM EDT) Pathologist [facility] Vit D, 25-Hydroxy 5.7(L) 30.0 - 80.0 ng/mL LAB CHEMISTRY METHOD 05/29/2024 11:17 AM EDT [facility] Blood Venous blood specimen / Unknown Venipuncture / Unknown 05/29/2024 6:55 AM EDT 05/29/2024 9:08 AM EDT Fabiana Odom MD LAB BLOOD ORDERABLES Fin al Result Performing Organization Address [facility] [address]/[facility] de Phone Number [facility] [address] [place] [address], [place] [phone] * (ABNORMAL) Vitamin B12 (05/29/2024 6:55 AM EDT) Vitamin B-12 1,140(H) 250 - 900 pcg/mL LAB CHEMISTRY METHOD 05/29/2024 10:19 AM EDT [facility] Blood Venous blood specimen / Unknown Venipuncture / Unknown 05/29/2024 6:55 AM EDT 05/29/2024 9:08 AM EDT Fabiana Odom MD LAB BLOOD ORDERABLES Fin al Result Performing Organization Address [facility] [address]/[facility] de Phone Number [facility] [address] [place] [address], * Magnesium (05/29/2024 6:55 AM EDT) [facility] Magnesium 2.3 1.9 - 2.6 mg/dL LAB CHEMISTRY METHOD 05/29/2024 9:57 AM EDT [facility] Blood Venous blood specimen / Unknown Venipuncture / Unknown 05/29/2024 6:55 AM EDT 05/29/2024 9:08 AM EDT Fabiana Odom MD LAB BLOOD ORDERABLES Fin al Result Performing Organization Address [facility] [address]/[facility] de Phone Number [facility] [address] [place] [address], * Folate (05/29/2024 6:55 AM EDT) [facility] Folate 6.3 2.8 - 17.0 ng/ml LAB CHEMISTRY METHOD 05/29/2024 10:19 AM EDT [facility] Blood Venous blood specimen / Unknown Venipuncture / Unknown 05/29/2024 6:55 AM EDT 05/29/2024 9:08 AM EDT Fabiana Odom MD LAB BLOOD ORDERABLES Fin al Result Performing Organization Address City/[facility] [address]/ZIP Co de Phone Number [facility] [address] [place] [address], * (ABNORMAL) Basic metabolic panel (05/29/2024 6:55 AM EDT) [facility] Sodium 141 133 - 145 mmol/L LAB CHEMISTRY METHOD 05/29/2024 9:57 AM EDT [facility] Potassium 4.4 3.5 - 5.5 mmol/L LAB CHEMISTRY METHOD 05/29/2024 9:57 AM [facility] Chloride 106 96 - 110 mmol/L LAB CHEMISTRY METHOD 05/29/2024 9:57 AM [facility] CO2 30 21 - 32 mmol/L LAB CHEMISTRY METHOD 05/29/2024 9:57 AM [facility] Anion Gap 5 3 - 11 LAB CHEMISTRY METHOD 05/29/2024 9:57 AM [facility] Glucose 103(H) 70 - 100 mg/dL LAB CHEMISTRY METHOD 05/29/2024 9:57 AM [facility] BUN 29(H) 5 - 25 mg/dL LAB CHEMISTRY METHOD 05/29/2024 9:57 AM [facility] Creatinine 0.92 0.70 - 1.30 mg/dL LAB CHEMISTRY METHOD 05/29/2024 9:57 AM [facility] eGFR 87 >=60 mL/min/1. 73m2 LAB CHEMISTRY METHOD 05/29/2024 9:57 AM [facility] Comment:Calculation based on the??Chronic Kidney Disease Epidemiology Collaboration (CKD-EPI) equation refit??without adjustment for race. BUN/Creatinine Ratio 31.5 LAB CHEMISTRY METHOD 05/29/2024 9:57 AM [facility] Calcium 8.8 8.5 - 10.5 mg/dL LAB CHEMISTRY METHOD 05/29/2024 9:57 AM [facility] Blood Venous blood specimen / Unknown Venipuncture / Unknown 05/29/2024 6:55 AM EDT 05/29/2024 9:08 AM EDT us Fabiana Odom MD LAB BLOOD ORDERABLES Fin al Result [facility] [address] [place] [address], * (ABNORMAL) Complete blood count (05/29/2024 6:55 AM EDT) [facility] WBC 10.0 4.8 - 10.8 K/mcL LAB HEMETOLOGY METHOD 05/29/2024 9:32 AM [facility] RBC 4.10(L) 4.50 - 5.50 M/mcL LAB HEMETOLOGY METHOD 05/29/2024 9:32 AM [facility] Hemoglobin 12.6(L) 13.5 - 17.5 g/dL LAB HEMETOLOGY METHOD 05/29/2024 9:32 AM [facility] Hematocrit 38.5(L) 42.0 - 54.0 % LAB HEMETOLOGY METHOD 05/29/2024 9:32 AM [facility] MCV 93.2 79.0 - 98.0 FL LAB HEMETOLOGY METHOD 05/29/2024 9:32 AM [facility] MCH 30.5 27.0 - 32.0 pcg LAB HEMETOLOGY METHOD 05/29/2024 9:32 AM [facility] MCHC 32.7 32.0 - 37.0 g/dL LAB HEMETOLOGY METHOD 05/29/2024 9:32 AM [facility] RDW 13.2 11.0 - 15.0 % LAB HEMETOLOGY METHOD 05/29/2024 9:32 AM [facility] Platelets 277 130 - 400 K/mcL LAB HEMETOLOGY METHOD 05/29/2024 9:32 AM [facility] MPV 10.9 7.0 - 11.0 FL LAB HEMETOLOGY METHOD 05/29/2024 9:32 AM [facility] NRBC 0.0 <1.0 % LAB HEMETOLOGY METHOD 05/29/2024 9:32 AM [facility] NRBC Absolute 0.00 <0.10 K/mcL LAB HEMETOLOGY METHOD 05/29/2024 9:32 AM EDT [facility] Blood Venous blood specimen / Unknown Venipuncture / Unknown 05/29/2024 6:55 AM EDT 05/29/2024 9:08 AM EDT us Fabiana Odom MD LAB BLOOD ORDERABLES Fin al Result [facility] [address] [place] [address], documented in this encounter Visit Diagnoses Diagnosis Vitamin D deficiency, unspecified Urinary tract infection, site not specified Benign prostatic hyperplasia without lower urinary tract symptoms Hyperlipidemia, unspecified documented in this encounter Care Teams Emt Paramedic Relationship Specialty Start Date End Date Atilio Lowe MD [address] [place] [address] PCP - General Internal Medicine 02/11/24 documented as of this encounter
--- OUTSIDE RECORDS SUMMARY | 2024-07-10 11:32 | XMS_ITS ---
Author Name [facility] Organization Unknown Encounters Encounter Type Encounter Reason Primary Diagnosis Location Date Ambulatory HEREDITARY SPASTIC PARAPLEGIA HEREDITARY SPASTIC PARAPLEGIA [facility] 11/30/2023 Ambulatory APRAXIA FOLLOWIN G CEREBRAL INFARCT [facility] 07/13/2023 Ambulatory HEREDITARY SPASTIC PARAPLEGIA HEREDITARY SPASTIC PARAPLEGIA [facility] 06/14/2023 Ambulatory HEREDITARY SPASTIC PARAPLEGIA HEREDITARY SPASTIC PARAPLEGIA [facility] 06/12/2022 Ambulatory HEREDITARY SPASTIC PARAPLEGIA HEREDITARY SPASTIC PARAPLEGIA [facility] 12/15/2021 Care Team Organization Name Specialty Phone Email Start Date End Da te [facility] ROBIN WONG Primary Care 06/12/2023 [facility] 01/04/2022 [facility] 12/28/2010 12/28/2010
--- OUTSIDE RECORDS SUMMARY | 2024-07-10 11:32 | XMS_ITS | Encounter Summary ---
Author Organization [facility] Address [address] [place] [address] Care Team Providers Care Felt Hat Flanging Operator Name Role Phone Atilio Lowe MD Primary Care Provider [phone] Encounter Details Date Type Department Care Team (Late st Contact Info) Description 06/11/2024 Lab Requisition [facility] - Main Lab [address] [facility] [place] [phone] Fabiana Odom MD [address] [facility] [address] [place] [address] Urinary tract infection, site not specified; Benign [...] On track(2024 4:15 PM EDT) Yes Alexandra Haji, OTR/L Note: STG: patient will present with [...] place ( = effective and patient's and professional healthcare representative are independent in management of garments) 04/29/2024 [...] LTG met documented as of this encounter Visit Diagnoses Diagnosis Urinary tract infection, site not specified Benign prostatic hyperplasia without lower urinary tract symptoms Hyperlipidemia, unspecified documented in this encounter Care Teams Felt Hat Flanging Operator Relationship Specialty Start Date End Date Atilio Lowe MD [address] [place] [place] [address] PCP - General Internal Medicine 02/11/24 documented as of this encounter
--- OUTSIDE RECORDS SUMMARY | 2024-07-10 11:32 | XMS_ITS | Data Portability ---
Author Organization [facility], [facility] Address [address] [place] [address] Care Team Providers Care Gate Agent Name Role Phone ROBIN LINDSEY Primary Care Provider Assessment No assessment recorded. Plan of Treatment Reminders Order Date Submit Date Provider Last Modified By Organization Details Last Modified Time Details Appointments RECHECK 15 2024 01:00P M Franklin ba PA-C Not available Not available Not available Lab None recorded . Referral None recorded . Procedures None recorded . Surgeries None recorded . Imaging None recorded . Medication Orders None recorded . Patient TargetsNo targets recorded. Patient InstructionsNo instructions recorded. Reason for Referral None Reported. Results Created Date Observation Date Name Description Value Unit Range Abnormal Flag Note LastModifiedBy Organization Detail LastModifiedTime 10/19/19 24 06/01/2021 ginai ng/elsa arreguin tic resul t No observ ation record ed. [email or web address] Not Available 09/21 21:02:23 Result Notes None recorded. Problems Name Problem SNOMED Code Status Onset Date Resolution Date Notes Provider Name and Address Organization Details Recorded Time Rotator cuff arthropat hy of left shoulder 779128750734 Active 2024 Franklin Benjamin PA-C [address], [place], [address] , [facility] 5 13:09:34 Rotator cuff arthropat hy of right shoulder 556123116301 Active 2024 Franklin Benjamin PA-C [address], [place], [address] , [facility] 5 13:09:40 Idiopathi c osteoarth ritis 957155659 Active 2016 Problem Code: M19.012; Problem Code Type: ICD-10; Status: 'A'; Not Available [facility] 4 12:12:14 Problem Notes None recorded. Procedures Surgical History Date Name Laterality Status Provider Name and Address Organization Details Recorded Time 5 Shoulder Joint/Bursa Injection, L/R w/US Lidocaine 1% 1 cc completed Franklin Benjamin PA-C [address] [facility], [place], [address], [facility] 06/20/2024 13:17:25 5 Sports Shoulder Bilateral 4 & 1 w/US completed Franklin Benjamin PA-C [address] [facility], [place], [address], [facility] 03/25/2024 12:01:02 4 Sports Shoulder Bilateral 4 & 1 w/US completed Franklin Benjamin PA-C [address] [facility], [place], [address], [facility] 12/28/2023 13:30:01 4 Sports Shoulder Bilateral completed Misty Redman MD [address] [facility], [place], [address], [facility] 09/21/2023 13:50:35 4 Sports Shoulder Bilateral completed Misty Redman MD [address] [facility], [place], [address], [facility] 06/08/2023 13:47:43 3 Other completed LARY TRENT [facility] 09/21/2023 13:24:15 Imaging Results Imaging Date Name Status LastModified by Organiz ation Details LastModified Time 06/01/2021 imaging/diag nostic result completed [email or web address] Information not available 10/19/2023 21:02:23 Procedure Notes None recorded. Medical Equipment None Reported. Allergies Allergen ID Allergen Name Allergen Category Reaction Reaction Severity Criticality Documentation Date Start Date Code Code System Note Provider Name and Address Organization Details Recorded Time 55274 lisinopri l medicatio n Not available Not available Not available 04/23/20232022 41491 RxNorm Not Available [facility] 12:44:48 Medications Name Sig Start Date Stop Date Status Note LastModified by Organization Details LastModified Time losartan 50 mg tablet 06/07 completed Not Available Not Available Not Available celecoxib 200 mg capsule 06/07 completed Not Available Not Available Not Available metolazone 2.5 mg tablet 06/19 completed Not Available Not Available Not Available atorvastati n 40 mg tablet active Not Available Not Available Not Available clotrimazol e 10 mg oksana 09/16 completed Not Available Not Available Not Available clonidine HCl 0.1 mg tablet 06/19 completed Not Available Not Available Not Available doxycycline hyclate 100 mg capsule 06/07 completed Not Available Not Available Not Available diltiazem ER 360 mg capsule,24 hr,extended release active Not Available Not Available Not Available ciprofloxac in 250 mg tablet 09/16 completed Not Available Not Available Not Available levofloxaci n 250 mg tablet 06/19 completed Not Available Not Available Not Available sulfamethox azole 800 mg-trimetho prim 160 mg tablet TAKE 1 TABLET BY MOUTH TWO TIMES A DAY FOR 10 DAYS. 06/19 completed Not Available Not Available Not Available omeprazole 40 mg capsule,del ayed release active Not Available Not Available Not Available doxycycline monohydrate 100 mg tablet 06/19 completed Not Available Not Available Not Available methenamine hippurate 1 gram tablet active Not Available Not Available Not Available lorazepam 0.5 mg tablet active Not Available Not Available Not Available tamsulosin 0.4 mg capsule 09/16 completed Not Available Not Available Not Available baclofen 10 mg tablet active Not Available Not Available No t Available cephalexin 500 mg capsule 03/25 completed Not Available Not Available Not Available nystatin 100,000 unit/gram topical cream 06/19 completed Not Available Not Available Not Available cranberry fruit 400 mg capsule Take by oral route. active Not Available Not Available No t Available mupirocin 2 % topical ointment 06/07 completed Not Available Not Available Not Available furosemide 20 mg tablet active Not Available Not Available Not Available bethanechol chloride 50 mg tablet 06/07 completed Not Available Not Available Not Available mirtazapine 15 mg tablet active Not Available Not Available Not Available levofloxaci n 500 mg tablet 06/19 completed Not Available Not Available Not Available celecoxib 100 mg capsule active Not Available Not Available Not Available losartan 100 mg tablet active Not Available Not Available Not Available fluoxetine 20 mg capsule active Not Available Not Available Not Available finasteride 5 mg tablet 09/16 completed Not Available Not Available Not Available diazepam 5 mg tablet active Not Available Not Available No t Available clindamycin 1 % lotion 06/19 completed Not Available Not Available Not Available ciclopirox 0.77 % topical cream 06/07 completed Not Available Not Available Not Available nitrofurant oin monohydrate /macrocryst als 100 mg capsule 06/07 completed Not Available Not Available Not Available lactulose 10 gram/15 mL oral solution active Not Available Not Available Not Available Nyamyc 100,000 unit/gram topical powder 06/19 completed Not Available Not Available Not Available Vitamin C active Not Available Not Merly ilable Not Available Colace active Not Available Not Availa ble Not Available Myrbetriq 25 mg tablet,exte nded release 06/07 completed Not Available Not Available Not Available Paxlovid 150 mg-100 mg tablets in a dose pack (Moderate Renal Dose) 2 PILLS ORALLY TWICE DAILY (RENAL DOSE) 06/07 completed Not Available Not Available Not Available Lagevrio 200 mg capsule (EUA) TAKE 4 CAPSULES BY MOUTH EVERY 12 HOURS FOR 5 DAYS 09/16 completed Not Available Not Available Not Available Vitals Date Recorded Body height Provider Name an d Address Organization Details Last Updated DateTime 06/08/2023 177.8 cm LARY TRENT [place] [facility] 06/08/2023 13:18:06 Date Recorded Body height Body mass index (BMI) Body weight Provider Name and Address Organization Details Last Updated DateTime 09/21/2023 177.8 cm 33 kg/m2 620478.25 g LARY TRENT [place] [facility] 09/21/2023 13:30:30 Date Recorded Body height Provider Name an d Address Organization Details Last Updated DateTime 12/28/2023 177.8 cm Diana Jimenez [facility] 12/28/2023 12:56:04 Date Recorded Body height Body mass index (BMI) Body weight Provider Name and Address Organization Details Last Updated DateTime 03/25/2024 177.8 cm 33 kg/m2 044180.25 g Diana Jimenez [facility] 03/25/2024 11:12:52 Date Recorded Body height Body mass index (BMI) Body weight Provider Name and Address Organization Details Last Updated DateTime 06/20/2024 177.8 cm 34.4 kg/m2 763793.17 g Diana Jimenez [facility] 06/20/2024 13:05:26 Social History Question Answer Notes LastModified by [employer] Details LastModified Time Tobacco Smoking Status Never Smoker LARY TWAN sr [facility] 09/21/2023 13:24:15 What Is Your Relationship Status? Information not available 09/21/2023 Sex: Unknown Functional Status Question Answer Note LastModified by [employer] Details LastModified Time Do you use any illicit or recreational drugs? No Information not available 09/21/2023 Do you or have you ever used any other forms of tobacco or nicotine? No Information not available 09/21/2023 Mental Status None recorded. Family History Nothing Reported. Medical History Condition Response Allergies/Hayfever N Coronary Artery Disease N Anxiety/Depression Y Breathing or lung disorders N Emphysema N Nerve Disorders N Thyroid Problems N COPD N Pacemaker N Anemia N Kidney/Bladder Problems Y Vascular Disease N Heart Trouble Y Heart Attack ([place]) N Gastrointestinal Disease N Cholesterol Y Diabetes N Autoimmune disease N Bleeding Disorder N Orthotics N Arthritis Y Seizures/Epilepsy N Blood Clot N AIDS/HIV N Congestive Heart Failure (CHF) N Acid Reflux (GERD) N Cancer N Stroke Y Asthma N Circulation Problems Y Peripheral Vascular Disease Y Sleep Apnea Y Hepatitis N Heart Disease N Rheumatoid Arthritis N Arrhythmia N Pulmonary Embolism N Headaches N Fibromyalgia N Hypertension Y Osteoporosis N Past Encounters Encounter ID Performer Location Encounter Start Date Encounter Closed Date Diagnosis/Indication Diagnosis SNOMED-CT Code Diagnosis ICD10 Code Diagnosis Note [id number] MD Theo Rodrigues [address] [place] [address] 06/08/2023 13:16:07 06/19/2023 12:15:59 Osteoarthritis of joint of right shoulder region 5368151896 08947 M19.011 Osteoarthr itis of joint of left shoulder region 7457058993 52286 M19.765 [id number] MD Theo Rodrigues [facility] [address] [place] [id number] 09/21/2023 13:17:24 10/19/2023 18:24:10 Osteoarthritis of joint of right shoulder region 8010262719 41736 M19.011 Osteoarthr itis of joint of left shoulder region 3433303271 81767 M19.529 [id number] ROBERT Sheth [facility] [address] [place] [id number] 12/28/2023 12:43:04 01/29/2024 10:34:58 Bilateral shoulder osteoarthritis 4494431415 67177 M19.011 M19.489 [id number] ROBERT Sheth [address] [facility] [place] [place] [address] 03/25/2024 10:47:18 04/02/2024 08:29:28 Osteoarthritis of joint of right shoulder region 7147655873 34567 M19.011 Osteoarthr itis of joint of left shoulder region 3416967722 71510 M19.822 [id number] ROBERT Sheth [facility] [address] [place] [id number] 06/20/2024 12:39:18 07/03/2024 15:55:44 Rotator cuff arthropathy of left shoulder 6960884954 7407680 M12.812 Rotator cu ff arthropathy of right shoulder 6309284989 7628253 M12.811 Health Concerns Section Related Observation LastModified by Organization Detai ls LastModified Time None Recorded Concern Status LastModified by Organization Details LastModified Time None Recorded Advance Directives Directive None Recorded Payers Encounter Date Sequence Insurance Name Policy Number Policy Sandoval Covered Member ID Sandoval Member ID Guarantor Name 06/08/2023 2 [facility] (MEDICARE SUPPLEMENT) [id number] Dillon Treviño [id number] Dillon Treviño 06/08/2023 1 [place] [employer] Dillon D Seigel [id number] Dillon D Seigel 09/21/2023 2 [facility] (MEDICARE SUPPLEMENT) [id number] Dillon D Seigel [id number] Dillon D Seigel 09/21/2023 1 [place] [employer] Dillon D Seigel [id number] Dillon D Seigel 12/28/2023 2 [facility] (MEDICARE SUPPLEMENT) [id number] Dillon D Seigel [id number] Dillon D Seigel 12/28/2023 1 [place] [employer] Dillon D Seigel [id number] Dillon D Seigel 06/20/2024 2 [facility] (MEDICARE SUPPLEMENT) [id number] Dillon D Seigel [id number] Dillon D Seigel 06/20/2024 1 [place] [facility] GOVERNMENT SERVICES Dillon D Seigel [id number] Dillon D Seigel Notes Date Note Type Note Provider Name and Address Organization Details Recorded Time 06/08/2023 text/html Issue: Left grea ter than right glenohumeral arthritisInterval History: 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 Exam and imaging here have been consistent with glenohumeral arthritis. Cortisone injections (most recently 02/2023) have provided good relief in the past, but effect has been diminishing recently, with last injections only providing a few weeks of relief. Pain is felt bilaterally on the lateral aspect of each shoulder. Aware of decreased range of motion, particularly on the left, with pain at end ranges of motion. Aware of crepitus. Has been taking gabapentin for this. Was taking ibuprofen with some relief but told to stop this by his primary care doctor due to concerns for blood pressure issues. We switched him to celebrex, maybe taking the edge off slightly. He has been working with an OT on ADL work-arounds and efforts on one-handed transfers and leg strengthening in anticipation of future surgery. Discharged recently, with ongoing concerns about ability to transfer one-handed in the event of shoulder surgery.Past family, medical, social history and review of systems have been reviewed and updated on the medical history sheet saved to the patient's chart. A 12-point review of systems is negative x12 except as noted above and/or on the medical history sheet.Examination: Pleasant 72-year-old gentleman in no acute distress. 5 feet 10 inches, 230 pounds. On exam of the left upper extremity, skin over the shoulder is intact. No effusion, no gross atrophy. No point tenderness to palpation. Active and passive forward elevation 80, external rotation 5, internal rotation greater trochanter. Rotator cuff testing deferred today. Mildly positive Yergason's. Sensation intact in an axillary distribution. Fires EPL, FPL and intrinsics. Hand is warm and well-perfused.On exam of the right upper extremity, skin over the shoulder is intact. No effusion, no gross atrophy. No point tenderness to palpation. Active and passive forward elevation 100, external rotation 30, internal rotation back pocket. Rotator cuff testing deferred. Negative Yergason's. Motor and sensation grossly intact distally.Imagin views of the left shoulder ordered and obtained at [facility] 11/24/2022 were reviewed during the visit. These demonstrate severe glenohumeral arthritis with complete loss of glenohumeral joint space. Central and posterior wear. Moderate a.c. arthrosis. Type II acromion.4 views of the right shoulder ordered and obtained and [facility] 11/24/2022 were reviewed during the visit. These again demonstrate severe glenohumeral arthritis with complete loss of glenohumeral joint space. More significant retroversion suggested on axillary view on this side. Type II if not type III acromion. Moderate to severe a.c. arthrosis. 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 Broached this discussion with the patient and his today. Technical details, risks and benefits, typical downtime of surgery discussed. We have tried to get him ready for this possibility with occupational therapy to work on building up her leg strength and working on one-handed transfers, with limited success. I think it is very likely that he would require rehabilitation upon discharge until he were able to weight-bear through the arms (3 months postop). While we typically avoid operating on both shoulders at the same time, discussed the possibility of doing both in his case in order to give him one recovery period. He continues to hope to put this off for now, would like to go forward with repeat injections today. We will continue with Celebrex. Discussed adding CBD to his regimen, discussed pros and cons of oral versus topical. He will continue with home occupational therapy to continue to work on managing ADLs with limited shoulder mobility. Follow-up in 3 months for recheck. [facility] speech recognition computer system validation specialist software was used to create portions of this document. An attempt at proofreading has been made to minimize errors. Please call for corrections. 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 Exam and imaging here have been consistent with glenohumeral arthritis. Cortisone injections (most recently 05/2023) have provided good relief in the past, but effect has been diminishing recently, with last injections only providing a few weeks of relief. Pain is felt bilaterally on the lateral aspect of each shoulder. Aware of decreased range of motion, particularly on the left, with pain at end ranges of motion. Aware of crepitus. Has been taking gabapentin for this. Was taking ibuprofen with some relief but told to stop this by his primary care doctor due to concerns for blood pressure issues. We switched him to celebrex, maybe taking the edge off slightly. He has been working with an OT on ADL work-arounds and efforts on one-handed transfers and leg strengthening in anticipation of future surgery. Discharged recently, with ongoing concerns about ability to transfer one-handed in the event of shoulder surgery.Past family, medical, social history and review of systems have been reviewed and updated on the medical history sheet saved to the patient's chart. A 12-point review of systems is negative x12 except as noted above and/or on the medical history sheet.Examination: Pleasant 72-year-old gentleman in no acute distress. 5 feet 10 inches, 230 pounds. On exam of the left upper extremity, skin over the shoulder is intact. No effusion, no gross atrophy. No point tenderness to palpation. Active and passive forward elevation 80, external rotation 5, internal rotation greater trochanter. Rotator cuff testing deferred today. Mildly positive Yergason's. Sensation intact in an axillary distribution. Fires EPL, FPL and intrinsics. Hand is warm and well-perfused.On exam of the right upper extremity, skin over the shoulder is intact. No effusion, no gross atrophy. No point tenderness to palpation. Active and passive forward elevation 100, external rotation 30, internal rotation back pocket. Rotator cuff testing deferred. Negative Yergason's. Motor and sensation grossly intact distally.Imagin views of the left shoulder ordered and obtained at [facility] 11/24/2022 were reviewed during the visit. These demonstrate severe glenohumeral arthritis with complete loss of glenohumeral joint space. Central and posterior wear. Moderate a.c. arthrosis. Type II acromion.4 views of the right shoulder ordered and obtained and [facility] 11/24/2022 were reviewed during the visit. These again demonstrate severe glenohumeral arthritis with complete loss of glenohumeral joint space. More significant retroversion suggested on axillary view on this side. Type II if not type III acromion. Moderate to severe a.c. arthrosis. 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 He remains averse to surgery at this time. We have tried to get him ready for this possibility with occupational therapy to work on building up her leg strength and working on one-handed transfers, with limited success. I think it is very likely that he would require rehabilitation upon discharge until he were able to weight-bear through the arms (3 months postop). While we typically avoid operating on both shoulders at the same time, discussed the possibility of doing both in his case in order to give him one recovery period. He continues to hope to put this off for now, would like to go forward with repeat injections today. We will continue with Celebrex and Tylenol, CBD. Discussed addition of topical pain modalities, such as lidocaine patch. Discussed potential of narcotic medications, though this would have to be managed by his PCP. He will continue with home occupational therapy to continue to work on managing ADLs with limited shoulder mobility. Repeat cortisone injections today. Follow-up in 3 months for recheck for possible ultrasound-guided injection.A total of 20 minutes was spent reviewing the patient's chart and imaging, evaluating the patient, and discussing options for management, and determining our plan going forward. Greater than 50% of this time was spent in direct patient counseling. [employer] speech recognition computer system validation specialist software was used to create portions of this document. An attempt at proofreading has been made to minimize errors. Please call for corrections. Misty Redman MD [address] [place] [address] [address] [facility], [place], [address], [facility] 09/21/2023 13:51:05 12/28/2023 text/html I am seeing the patient today under the supervision of who was available but who did not see the patient. REASON FOR VISIT Patient comes to the office with known glenohumeral joint arthritis of the {{left Right Bilateral *}} shoulder. The patient has done well with conservative management for their shoulder pain. Recently reports increasing discomfort over the past several weeks without injury. Pain is generalized about the shoulder and discomfort is noted at night. PAST MEDICAL/SURGICAL HISTORY Current medications per intake sheet. PHYSICAL FINDINGS The patient is well appearing, in no apparent distress, alert and oriented to person, place and time. Gait is symmetric. No significant swelling, warmth or erythema about either shoulder. There is mild tenderness to palpation about the shoulder. Active range of motion of the shoulder is {{full restricted*}} with moderate pain through mid range manipulations. 4/5 strength of the shoulder. Good stability of the shoulder. Peripheral, vascular, lymphatic examination, skin, neurologic coordination, reflexes, sensation are within normal limits. ASSESSMENT Bilateral glenohumeral joint arthritis PLAN The patient has done well with conservative management in regards to the shoulder. Continued conservative management recommended. Moderating activities with the upper extremity recommended also. See procedure note. Follow up as needed. Franklin Benjamin PA-C [address], [place], [address], [facility] 12/28/2023 13:31:16 03/25/2024 text/html I am seeing the patient today under the supervision of Dr. Atwood who was available but who did not see the patient. REASON FOR VISIT Patient comes to the office with known glenohumeral joint arthritis of the {{left Right Bilateral *}} shoulder. The patient has done well with conservative management for their shoulder pain. Recently reports increasing discomfort over the past several weeks without injury. Pain is generalized about the shoulder and discomfort is noted at night. PAST MEDICAL/SURGICAL HISTORY Current medications per intake sheet. PHYSICAL FINDINGS The patient is well appearing, in no apparent distress, alert and oriented to person, place and time. No significant swelling, warmth or erythema about either shoulder. There is mild tenderness to palpation about the shoulder. Active range of motion of the shoulder is {{full restricted*}} with moderate pain through mid range manipulations. 4/5 strength of the shoulder. Good stability of the shoulder. Peripheral, vascular, lymphatic examination, skin, neurologic coordination, reflexes, sensation are within normal limits. ASSESSMENT severe, end-stage bilateral glenohumeral joint arthritis PLAN The patient has done well with conservative management in regards to the shoulder. Continued conservative management recommended. Moderating activities with the upper extremity recommended also. See procedure note. Follow up as needed. Franklin Benjamin PA-C [address], [place], [address], [facility] 03/25/2024 12:03:55 06/20/2024 text/html I am seeing the patient today under the supervision of Dr. Atwood who was available but who did not see the patient. REASON FOR VISIT Patient comes to the office with known glenohumeral joint arthritis of the {{left Right Bilateral *}} shoulder. The patient has done well with conservative management for their shoulder pain. Recently reports increasing discomfort over the past several weeks without injury. Pain is generalized about the shoulder and discomfort is noted at night. PAST MEDICAL/SURGICAL HISTORY Current medications per intake sheet. PHYSICAL FINDINGS The patient is well appearing, in no apparent distress, alert and oriented to person, place and time. No significant swelling, warmth or erythema about either shoulder. There is mild tenderness to palpation about the shoulder. Active range of motion of the shoulder is {{full restricted*}} with moderate pain through mid range manipulations. 4/5 strength of the shoulder. Good stability of the shoulder. Peripheral, vascular, lymphatic examination, skin, neurologic coordination, reflexes, sensation are within normal limits. ASSESSMENT severe, end-stage bilateral glenohumeral joint arthritis PLAN The patient has done well with conservative management in regards to the shoulder. Continued conservative management recommended. Moderating activities with the upper extremity recommended also. See procedure note. Follow up as needed. Franklin Benjamin PA-C [address] [facility] [address], [place], [address], [facility] 06/20/2024 13:17:31
--- OUTSIDE RECORDS SUMMARY | 2024-07-10 11:32 | XMS_ITS | Clinical Summary ---
Author Organization [address] [facility] Address [address] [place] [address] Phone Care Team Providers Care Scarf Gluer Name Role Phone Atilio Lowe MD Primary Care Provider [phone] Active Problems Problem Noted Date Diagnosed Date Lymphatic edema 03/17/2024 Encounters Date Type Department Care Team Description 06/11/2024 Lab Requisition [facility] [address] [place] [phone] Fabiana Odom MD Urinary tract infection, site not specified; Benign prostatic hyperplasia without lower urinary tract symptoms; Hyperlipidemia, unspecified 06/04/2024 Lab Requisition [facility] [address] [place] [phone] Fabiana Odom MD Urinary tract infection, site not specified; Benign prostatic hyperplasia without lower urinary tract symptoms; Hyperlipidemia, unspecified 05/29/2024 Lab Requisition [facility] [address] [place] [phone] Fabiana Odom MD Vitamin D deficiency, unspecified; Urinary tract infection, site not specified; Benign prostatic hyperplasia without lower urinary tract symptoms; Hyperlipidemia, unspecified 05/08/2024 1:00 PM EDT Treatment [facility] [address] [phone] Alexandra Haji, OTR/L Lymphedema of leg (Primary Dx) 04/29/2024 12:30 PM EDT Treatment [facility] [address] [phone] Alexandra Haji, OTR/L Lymphatic edema (Primary Dx) from Last 3 Months Social History Tobacco Use Types Packs/Day Years Used Date Smoking Tobacco: Never Assessed Sex and Gender Information Value Date Recorded Sex Assigned at Male 01/22/2024 10:49 AM EST Legal Sex Male 6:12 AM EST Gender Identity Male 01/22/2024 10:49 AM EST Sexual Orientation Straight 05/22/2024 12 :44 PM EDT Plan of Treatment Health Maintenance Due Date Last Done Comments DTaP,Tdap,and Td Vaccines (1 - Tdap) 1968 Pneumococcal Vaccine: 50+ Years (1 of 1 - PCV) 1999 Cholesterol Screening (Lipid Panel) 01/22/2022 Colorectal Cancer Screening: Colonoscopy 01/22/2022 Depression Screening 01/22/2022 Hepatitis C Screening 01/22/2022 Medicare Annual Wellness Visit 01/22/2022 Social Influencers of Health Screening 01/22/2022 COVID-19 Vaccine ( season) 2024 11/19/2023, 11/30/2022, 08/15/2022, Additional history exists Falls Risk Assessment 02/24/2025 02/25/2024 Zoster Vaccines Completed 02/01/2018, 11/16/2017 RSV Immunization Adult Patients Completed 12/18/2022 Influenza Vaccine Completed 11/03/2023, , 11/05/2021, Additional history exists HIB Vaccines Aged Out No longer eligi ble based on patient's age to complete this topic HPV Vaccines Aged Out No longer eligi ble based on patient's age to complete this topic Hepatitis A Vaccines Aged Out No long er eligible based on patient's age to complete this topic Hepatitis B Vaccines Aged Out No long er eligible based on patient's age to complete this topic IPV Vaccines Aged Out No longer eligi ble based on patient's age to complete this topic MMR Vaccines Aged Out No longer eligi ble based on patient's age to complete this topic Meningococcal ACWY Vaccine Aged Out N o longer eligible based on patient's age to complete this topic Meningococcal B Vaccine Aged Out No l onger eligible based on patient's age to complete this topic RSV Immunization Patients Under 20 months Aged Out No longer eligible based on patient's age to complete this topic Varicella Vaccines Aged Out No longer eligible based on patient's age to complete this topic Goals Goal Patient Goal Type Associated Problems [...] place ( = effective and patient's and field care coordinator are independent in management of garments) 04/29/2024 [...] LE's have no open areas LTG met Procedures Procedure Name Priority Date/Time Associated Diagnosis Comments BASIC METABOLIC PANEL Routine 06/05/2024 7:59 AM EDT Urinary tract infection, site not specified Benign prostatic hyperplasia without lower urinary tract symptoms Hyperlipidemia, unspecified COMPLETE BLOOD COUNT Routine 06/05/2024 7:59 AM EDT Urinary tract infection, site not specified Benign prostatic hyperplasia without lower urinary tract symptoms Hyperlipidemia, unspecified THYROID STIMULATING HORMONE Routine 05/29/2024 6:55 AM EDT Vitamin D deficiency, unspecified Urinary tract infection, site not specified Benign prostatic hyperplasia without lower urinary tract symptoms Hyperlipidemia, unspecified VITAMIN D 25 HYDROXY Routine 05/29/2024 6:55 [...] without lower urinary tract symptoms Hyperlipidemia, unspecified from Last 3 Months Results * (ABNORMAL) Complete blood count (06/05/2024 7:59 AM EDT) Only the most recent of2 resultswithin the time period is included. WBC 9.9 4.8 - 10.8 K/mcL LAB HEMETOLOGY METHOD 06/05/2024 11:20 AM [facility] RBC 3.90(L) 4.50 - 5.50 M/mcL LAB HEMETOLOGY METHOD 06/05/2024 11:20 AM [facility] Hemoglobin 11.8(L) 13.5 - 17.5 g/dL LAB HEMETOLOGY METHOD 06/05/2024 11:20 AM [facility] Hematocrit 37.2(L) 42.0 - 54.0 % LAB HEMETOLOGY METHOD 06/05/2024 11:20 AM [facility] MCV 94.9 79.0 - 98.0 FL LAB HEMETOLOGY METHOD 06/05/2024 11:20 AM [facility] MCH 30.1 27.0 - 32.0 pcg LAB HEMETOLOGY METHOD 06/05/2024 11:20 AM [facility] MCHC 31.7(L) 32.0 - 37.0 g/dL LAB HEMETOLOGY METHOD 06/05/2024 11:[address] [facility] RDW 14.0 11.0 - 15.0 % LAB HEMETOLOGY METHOD 06/05/2024 11:[address] [facility] Platelets 241 130 - 400 K/mcL LAB HEMETOLOGY METHOD 06/05/2024 11:[address] [facility] MPV 11.7(H) 7.0 - 11.0 FL LAB HEMETOLOGY METHOD 06/05/2024 11:[address] [facility] NRBC 0.0 <1.0 % [facility] 06/05/[facility] 11:[address] [facility] NRBC Absolute 0.00 <0.10 K/mcL LAB [facility] 06/05/2024 11:[address] [facility] Blood Venous blood specimen / Unknown Venipuncture / Unknown 06/05/2024 7:59 AM EDT 06/05/2024 10:46 AM EDT us Fabiana Odom MD LAB BLOOD ORDERABLES Fin al Result [facility] [address] [place] [address], * Basic metabolic panel (06/05/2024 7:59 AM EDT) Only the most recent of2 resultswithin the time period is included. Sodium 139 133 - 145 mmol/L LAB CHEMISTRY METHOD 06/05/2024 12:[address] [facility] Potassium 3.9 3.5 - 5.5 mmol/L LAB CHEMISTRY METHOD 06/05/2024 12:[address] [facility] Chloride 105 96 - 110 mmol/L LAB CHEMISTRY METHOD 06/05/2024 12:17 PM [facility] CO2 28 21 - 32 mmol/L LAB CHEMISTRY METHOD 06/05/2024 12:17 PM [facility] Anion Gap 6 3 - 11 LAB CHEMISTRY METHOD 06/05/2024 12:17 PM [facility] Glucose 99 70 - 100 mg/dL LAB CHEMISTRY METHOD 06/05/2024 12:17 PM [facility] BUN 21 5 - 25 mg/dL LAB CHEMISTRY METHOD 06/05/2024 12:17 PM [facility] Creatinine 1.03 0.70 - 1.30 mg/dL LAB CHEMISTRY METHOD 06/05/2024 12:17 PM [facility] eGFR 76 >=60 mL/min/1. 73m2 LAB CHEMISTRY METHOD 06/05/2024 12:17 PM [facility] Comment:Calculation based on the??Chronic Kidney Disease Epidemiology Collaboration (CKD-EPI) equation refit??without adjustment for race. BUN/Creatinine Ratio 20.4 LAB CHEMISTRY METHOD 06/05/2024 12:17 PM [facility] Calcium 8.8 8.5 - 10.5 mg/dL LAB CHEMISTRY METHOD 06/05/2024 12:17 PM [facility] Blood Venous blood specimen / Unknown Venipuncture / Unknown 06/05/2024 7:59 AM EDT 06/05/2024 10:46 AM EDT us Fabiana Odom MD LAB BLOOD ORDERABLES Fin al Result [facility] [address] [place] [address], * (ABNORMAL) Vitamin D 25 hydroxy (05/29/2024 6:55 AM EDT) Vit D, 25-Hydroxy 5.7(L) 30.0 - 80.0 ng/mL LAB CHEMISTRY METHOD 05/29/2024 11:[address] [facility] Blood Venous blood specimen / Unknown Venipuncture / Unknown 05/29/2024 6:55 AM EDT 05/29/2024 9:08 AM EDT Fabiana Odom MD LAB BLOOD ORDERABLES Fin al Result Performing Organization Address [facility] de Phone Number [facility] [address] [place] [address], [place] [phone] * Thyroid stimulating hormone (05/29/2024 6:55 AM EDT) TSH 3.88 0.40 - 4.00 mcIU/mL LAB CHEMISTRY METHOD 05/29/2024 4:[address] [facility] Blood Venous blood specimen / Unknown Venipuncture / Unknown 05/29/2024 6:55 AM EDT 05/29/2024 9:08 AM EDT Fabiana Odom MD LAB BLOOD ORDERABLES Fin al Result Performing Organization Address [facility] Phone Number [facility] [address] [place] [address], [place] [phone] * Magnesium (05/29/2024 6:55 AM EDT) Pathologist [facility] Magnesium 2.3 1.9 - 2.6 mg/dL LAB CHEMISTRY METHOD 05/29/2024 9:[address] [facility] Blood Venous blood specimen / Unknown Venipuncture / Unknown 05/29/2024 6:55 AM EDT 05/29/2024 9:08 AM EDT Fabiana Odom MD LAB BLOOD ORDERABLES Fin al Result Performing Organization Address [facility] de Phone Number [facility] [address] [place] [address], [place] [phone] * Folate (05/29/2024 6:55 AM EDT) [facility] Folate 6.3 2.8 - 17.0 ng/ml LAB CHEMISTRY METHOD 05/29/2024 10:[address] [facility] Blood Venous blood specimen / Unknown Venipuncture / Unknown 05/29/2024 6:55 AM EDT 05/29/2024 9:08 AM EDT Fabiana Odom MD LAB BLOOD ORDERABLES Fin al Result [facility] [address] [place] [address], [place] [phone] * (ABNORMAL) Vitamin B12 (05/29/2024 6:55 AM EDT) [facility] Vitamin B-12 1,140(H) 250 - 900 pcg/mL LAB CHEMISTRY METHOD 05/29/2024 10:[address] [facility] Blood Venous blood specimen / Unknown Venipuncture / Unknown 05/29/2024 6:55 AM EDT 05/29/2024 9:08 AM EDT Fabiana Odom MD LAB BLOOD ORDERABLES Fin al Result [facility] [address] [place] [address], [place] [phone] from Last 3 Months Insurance MEDICARE [facility] [employer] [id number] Care Teams Scarf Gluer Relationship Specialty Start Date End Date Atilio Lowe MD [address] [place] [id number] PCP - General Internal Medicine 02/11/24
--- OUTSIDE RECORDS SUMMARY | 2024-07-10 11:32 | XMS_ITS | Clinical Summary ---
Author Organization [facility] Address [address] [place] [address] Care Team Providers Care Rod Puller Name Role Phone Atilio Lowe Primary Care Provider Social History Tobacco Use Types Packs/Day Years Used Date Smoking Tobacco: Never Assessed Sex and Gender Information Value Date Recorded Sex Assigned at Male 08/21/2022 12:55 PM EDT Legal Sex Male 10:35 AM EDT Gender Identity Male 08/21/2022 12:55 PM EDT Sexual Orientation Straight 08/21/2022 12 :55 PM EDT Plan of Treatment Health Maintenance Due Date Last Done Comments Cologuard 1950 Colon Cancer Screening 1950 Colonoscopy 1950 FOBT / Fit Test 1950 Hepatitis C Screening 1950 Sigmoidoscopy 1950 Medicare AWV 1951 DTaP,Tdap,and Td Vaccines (1 - Tdap) 1971 Pneumococcal Vaccine: 50+ Years (1 of 1 - PCV) 1999 COVID-19 Vaccine ( season) 2023 08/15/2022, 11/13/2021, 06/06/2021, Additional history exists Alcohol/Substance Use Screening 02/20/2024 Depression Screening and Follow-Up 02/20/2024 Health Care Proxy Review 02/20/2024 Social Drivers of Health Annual Screening 02/20/2024 RSV Vaccine (60+ years old and patients) (1 - 1-dose 75+ series) 2024 Influenza Vaccine (Season Ended) 2024 11/05/2021, 10/30/2020 Zoster Vaccines Completed 02/01/2018, 11/16/2017 Hepatitis B Vaccines Aged Out No long er eligible based on patient's age to complete this topic Insurance MEDICARE [facility] Care Teams Rod Puller Relationship Specialty Start Date End Date Atilio Lowe [address] [place] [id number] PCP - General Internal Medicine 07/03/22
--- OUTSIDE RECORDS SUMMARY | 2024-07-10 11:32 | XMS_ITS | Clinical Summary ---
Author Organization [facility] Address [address] [place] [address] Care Team Providers Care Signal Maintainer Helper Name Role Phone Unavailable Primary Care Provider Unavailabl e Social History Tobacco Use Types Packs/Day Years Used Date Smoking Tobacco: Never Assessed Sex and Gender Information Value Date Recorded Sex Assigned at Not on file Legal Sex Male 1:13 PM EDT Gender Identity Not on file Sexual Orientation Not on file Plan of Treatment Health Maintenance Due Date Last Done Comments Hepatitis C Virus Screening 1949 DTaP/Tdap/Td Vaccines (1 - Tdap) 1968 Pneumococcal Vaccines 50+ (1 of 1 - PCV) 1999 Zoster (Shingles) Vaccine (1 of 2) 1999 COVID-19 Vaccine ( - 2023-2 5 season) 2023 RSV Vaccine 60 years and old er and Patients (1 - 1-dose 75+ series) 2024 Hepatitis B Vaccines Aged Out No long er eligible based on patient's age to complete this topic
--- OUTSIDE RECORDS SUMMARY | 2024-07-10 11:32 | XMS_ITS | Encounter Summary ---
Author Organization [employer] Address [address] [place] [address] Care Team Providers Care Hotel Maintenance Worker Name Role Phone Atilio Lowe MD Primary Care Provider [phone] Encounter Details Date Type Department Care Team (Late st Contact Info) Description 06/04/2024 Lab Requisition [facility] [address] [facility] [place] [phone] Fabiana Odom MD [address] [facility] [address] [place] [address] Urinary tract infection, site not specified; Benign [...] place ( = effective and patient's and cardiac care nurse are independent in management of garments) 04/29/2024 [...] Procedure Name Priority Date/Time Associated Diagnosis Comments COMPLETE BLOOD COUNT Routine 06/05/2024 7:59 AM EDT Urinary tract infection, site not specified Benign prostatic hyperplasia without lower urinary tract symptoms Hyperlipidemia, unspecified BASIC METABOLIC PANEL Routine 06/05/2024 7:59 AM EDT Urinary tract infection, site not specified Benign prostatic hyperplasia without lower urinary tract symptoms Hyperlipidemia, unspecified documented in this encounter Results * Basic metabolic panel (06/05/2024 7:59 AM EDT) Sodium 139 133 - 145 mmol/L LAB CHEMISTRY METHOD 06/05/2024 12:17 PM [facility] Potassium 3.9 3.5 - 5.5 mmol/L LAB CHEMISTRY METHOD 06/05/2024 12:17 PM [facility] Chloride 105 96 - 110 mmol/L LAB CHEMISTRY METHOD 06/05/2024 12:17 PM [facility] CO2 28 21 - 32 mmol/L LAB CHEMISTRY METHOD 06/05/2024 12:17 PM [facility] Anion Gap 6 3 - 11 LAB CHEMISTRY METHOD 06/05/2024 12:17 PM [facility] Glucose 99 70 - 100 mg/dL LAB CHEMISTRY METHOD 06/05/2024 12:17 PM [facility] BUN 21 5 - 25 mg/dL LAB CHEMISTRY METHOD 06/05/2024 12:17 PM [facility] Creatinine 1.03 0.70 - 1.30 mg/dL LAB CHEMISTRY METHOD 06/05/2024 12:17 PM [facility] eGFR 76 >=60 mL/min/1. 73m2 LAB CHEMISTRY METHOD 06/05/2024 12:17 PM EDT [facility] Comment:Calculation based on the??Chronic Kidney Disease Epidemiology Collaboration (CKD-EPI) equation refit??without adjustment for race. BUN/Creatinine Ratio 20.4 LAB CHEMISTRY METHOD 06/05/2024 12:17 PM EDT [facility] Calcium 8.8 8.5 - 10.5 mg/dL LAB CHEMISTRY METHOD 06/05/2024 12:17 PM EDT [facility] Blood Venous blood specimen / Unknown Venipuncture / Unknown 06/05/2024 7:59 AM EDT 06/05/2024 10:46 AM EDT us Fabiana Odom MD LAB BLOOD ORDERABLES Fin al Result [facility] [address] [place] [address], * (ABNORMAL) Complete blood count (06/05/2024 7:59 AM EDT) WBC 9.9 4.8 - 10.8 K/mcL LAB HEMETOLOGY METHOD 06/05/2024 11:20 AM [facility] RBC 3.90(L) 4.50 - 5.50 M/mcL LAB HEMETOLOGY METHOD 06/05/2024 11:20 AM [facility] Hemoglobin 11.8(L) 13.5 - 17.5 g/dL LAB HEMETOLOGY METHOD 06/05/2024 11:20 AM [facility] Hematocrit 37.2(L) 42.0 - 54.0 % LAB HEMETOLOGY METHOD 06/05/2024 11:20 AM [facility] MCV 94.9 79.0 - 98.0 FL LAB HEMETOLOGY METHOD 06/05/2024 11:20 AM T [facility] MCH 30.1 27.0 - 32.0 pcg LAB HEMETOLOGY METHOD 06/05/2024 11:20 AM EDT [facility] MCHC 31.7(L) 32.0 - 37.0 g/dL LAB HEMETOLOGY METHOD 06/05/2024 11:20 AM EDT [facility] RDW 14.0 11.0 - 15.0 % LAB HEMETOLOGY METHOD 06/05/2024 11:20 AM EDT [facility] Platelets 241 130 - 400 K/mcL LAB HEMETOLOGY METHOD 06/05/2024 11:20 AM EDT [facility] MPV 11.7(H) 7.0 - 11.0 FL LAB HEMETOLOGY METHOD 06/05/2024 11:20 AM EDT [facility] NRBC 0.0 <1.0 % LAB HEMETOLOGY METHOD 06/05/2024 11:20 AM EDT [facility] NRBC Absolute 0.00 <0.10 K/mcL LAB HEMETOLOGY METHOD 06/05/2024 11:20 AM T [facility] Blood Venous blood specimen / Unknown Venipuncture / Unknown 06/05/2024 7:59 AM EDT 06/05/2024 10:46 AM EDT us Fabiana Odom MD LAB BLOOD ORDERABLES Fin al Result [facility] [address] [place] [address], documented in this encounter Visit Diagnoses Diagnosis Urinary tract infection, site not specified Benign prostatic hyperplasia without lower urinary tract symptoms Hyperlipidemia, unspecified documented in this encounter Care Teams Hotel Maintenance Worker Relationship Specialty Start Date End Date Atilio Lowe MD [address] [place] [address] PCP - General Internal Medicine 02/11/24 documented as of this encounter
== END 2024-07-10 12:39 | disposition home or self-care (01) ==
LOC: HO.HUSH 10:49
PROVIDERS: PCP Family Medicine; Visit Provider Urology
DX: N31.9 Neuromuscular dysfunction of bladder, unspecified (principal)
CPT/HCPCS: 51705; 99213; G2211

== ENCOUNTER → 2024-07-10 10:49 | Outpatient (BNVA) | payer MEDICARE, OTHER, SELFPAY | PROVIDERS: PCP Family Medicine; Visit Provider Urology | DX: N31.9 Neuromuscular dysfunction of bladder, unspecified (principal) | CPT/HCPCS: 51705; 99212 ==

== ENCOUNTER 2024-09-26 13:56 | Outpatient (REF) | payer MEDICARE, OTHER, SELFPAY | END 2024-09-26 13:57 | disposition home or self-care (01) | LOC: HO.LAB 13:56 | PROVIDERS: PCP Family Medicine; Visit Provider Urology | DX: N31.9 Neuromuscular dysfunction of bladder, unspecified (principal) | CPT/HCPCS: 51705; 87086 ==

== ENCOUNTER 2025-01-09 11:29 | Outpatient (AMB) | payer MEDICARE, OTHER, SELFPAY ==
--- NOTE | 2025-01-09 11:45 | A.OFFVIS_ITS ---
Intake Visit Reasons: 6M follow up Intake Note: Patient Is Present for [facility] ER Follow up - UTI in setting of SP Tube Urology Med: Methenamine, Vitamin C Antibiotic Allergy: None Blood Thinner: Aspirin [facility] ER on 10/27/2024 for recurrent UTI in setting of SP Tube Treatment Technician Required: No Chronic Condition Nurse: Chronic Condition Nurse Present Accompanied by: Spouse Allergies lisinopril Adverse Reaction (Intermediate, Verified 01/09/25 12:08) cough HPI Comments Details: Dillon Treviño is a very pleasant male. He is a patient of Dr Lowe. He seen for the following urologic conditions - neurogenic bladder Suprapubic tube six-month follow-up Eighteen Mozambican regular catheter VNA has been changing Change today Has seen infectious disease recommend on demand Bactrim Bactrim prescription provided Has recovered Also with some degree of warmth on right leg Size unchanged Remains on baseline Keflex for cellulitis Continue methenamine and vitamin-C which has minimized infection Using lactulose for constipation Does have occasional spasm when bladder empty Background of hereditary paralysis Previous management had included - finasteride with tamsulosin for prostate relaxation - 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 Known neurogenic bladder from prior urodynamics 2009 - has been optimized on outlet medication and detrol Imaging results 08/06 no hydronephrosis 08/07 , no hydronephrosis Treatments - Botox January 2021 Current recommendations for double voiding and timed voiding to maintain bladder emptying PFSH Medical History History of electroconvulsive therapy Spastic paraplegia, hereditary Ataxia Arthritis Low back pain History of CVA (cerebrovascular accident) Cellulitis Balance problem Wheelchair dependence CATALINA on CPAP Depression OAB (overactive bladder) BPH (benign prostatic hyperplasia) GERD (gastroesophageal reflux disease) Elevated cholesterol HTN (hypertension) Surgical History Hx of eye surgery Hx of cystoscopy Hx of colonoscopy S/P patent foramen ovale closure Family History Father during operation Social History Are you a primary personal care home administrator to a significant other at home: No Patient Tobacco Use Status: Never used Tobacco Substance Use Type: Marijuana Advance Directives Date on File: 01/08/23 Review of Systems Const Denies chills and Denies fever(s) Card Reports no additional complaints and Denies syncope Resp Denies cough GI Denies abdominal pain and Denies heartburn Reports as per HPI and Denies change in libido Neuro Denies syncope Psych Denies change in libido Endo Denies change in libido Physical Exam Const General: cooperative, healthy appearing, comfortable and no acute distress Orientation/consciousness: patient oriented x3 HEENT Face and sinus: Yes normal facial exam Mouth: moist mucous membranes Neck Neck: Yes normal visual inspection, Yes full ROM and Yes trachea midline Chest Chest palpation & inspection: normal inspection of the chest Resp Effort & Inspection: normal respiratory effort, able to speak in complete sentences and no respiratory distress GI Inspection: Yes normal to inspection Back/Spine/Pelvis Cervical Spine: normal cervical lordosis Thoracic/Lumbar Spine: thoracic and lumbar spine normal to inspection Skin General skin exam: no rashes or lesions noted Neuro General: patient oriented x3, gait normal, tone normal and moves all extremities Extrem General: Yes normal to inspection and Yes capillary refill normal Office Procedures Bladder/Catheter Procedure Details: Suprapubic tube exchange Clean technique 18 Mozambican silicon 10 cc balloon Patient supplied [id number] of bladder tube Procedure code (CPT) selection complete Assessment & Plan Assessment & Plan (1) Recurrent UTI (urinary tract infection): Code(s): N39.0 - Urinary tract infection, site not specified Category: Medical (2) Suprapubic catheter: Code(s): Z93.59 - Other cystostomy status Category: Medical (3) Neurogenic urinary bladder disorder: Comment: Botox January 2021 Code(s): N31.9 - Neuromuscular dysfunction of bladder, unspecified Category: Medical Plan Six-month follow-up Add Bactrim Will initiate suprapubic change if needed Orders: Orders AMB Bladder/Catheter Procedure Today Z93.59 - Other cystostomy status Medications: New sulfamethoxazole-trimethoprim 800-160 mg (Bactrim DS) 1 tab PO BID 28 tabs 2RF 14 days Z93.59 - Other cystostomy status Refilled ascorbic acid (vitamin C) 1 g PO DAILY 90 tabs 1RF 90 days N31.9 - Neuromuscular dysfunction of bladder, unspecified, N39.0 - Urinary tract infection, site not specified methenamine hippurate 1 g PO DAILY 90 tabs 1RF 90 days N31.9 - Neuromuscular dysfunction of bladder, unspecified, N39.0 - Urinary tract infection, site not specified Patient Instructions: This note is constructed using voice recognition software. While every effort has been made to ensure accuracy anthropological linguist errors may have been included. Imaging studies, laboratory and physical exam results were discussed and reviewed in detail. No major barriers to patient understanding were identified. An opportunity to ask questions regarding the treatment plan was provided. All questions were answered. The patient expressed understanding and agreement with the above treatment plan. The patient is aware they should contact our office by phone for worsening of their current condition or the appearance of new urologic symptoms. Compliance is encouraged with any medications and followup testing that is ordered. It is a privilege to participate in the urologic care of your patient. If you have any questions or concerns regarding treatment for the above conditions, or other urologic issues, please do not hesitate to contact me. The office telephone contact is [phone]. Sincerely, Dr Jermain Gutierrez MD, ROBIN [facility] - Urology Compassionate Specialist Care for the Genitourinary System Coding Level of Care Code Est Pt Level 4 (90743) Diagnoses Recurrent UTI (urinary tract infection) N39.0 Suprapubic catheter Z93.59 Neurogenic urinary bladder disorder N31.9 CPT Codes Bladder/Catheter Procedure - CPT: [id number] of bladder tube ([id number])
--- OUTSIDE RECORDS SUMMARY | 2025-01-09 12:20 | XMS_ITS | Encounter Summary ---
Author Organization [employer] Address [address] [place] [address] Care Team Providers Care Rn Assessment Name Role Phone Atilio Lowe MD Primary Care Provider Encounter Details Date Type Department Care Team (Late st Contact Info) Description 06/04/2024 Lab Requisition [facility] - Main Lab [address] [facility] [place] [phone] Fabiana Odom MD [address] [facility] 1 [place] [address] Urinary tract infection, site not specified; Benign [...] place ( = effective and patient's and home health care physician are independent in management of garments) 04/29/2024 [...] mmol/L LAB CHEMISTRY METHOD 06/05/2024 12:17 PM [facility] Potassium 3.9 3.5 - 5.5 mmol/L LAB CHEMISTRY METHOD 06/05/2024 12:17 PM [facility] Chloride 105 96 - 110 mmol/L LAB CHEMISTRY METHOD 06/05/2024 12:17 PM [facility] CO2 28 21 - 32 mmol/L LAB CHEMISTRY METHOD 06/05/2024 12:17 PM [facility] Anion Gap 6 3 - 11 LAB CHEMISTRY METHOD 06/05/2024 12:17 PM [facility] Glucose 99 70 - 100 mg/dL LAB CHEMISTRY METHOD 06/05/2024 12:17 PM [facility] BUN 21 5 - 25 mg/dL LAB CHEMISTRY METHOD 06/05/2024 12:17 PM [facility] Creatinine 1.03 0.70 - 1.30 mg/dL LAB CHEMISTRY METHOD 06/05/2024 12:17 PM [facility] eGFR 76 >=60 mL/min/1. 73m2 LAB CHEMISTRY METHOD 06/05/2024 12:17 PM EDT [facility] Comment:Calculation based on the Chronic Kidney Disease Epidemiology Collaboration (CKD-EPI) equation refit without adjustment for race. BUN/Creatinine Ratio 20.4 LAB CHEMISTRY METHOD 06/05/2024 12:17 PM EDT [facility] Calcium 8.8 8.5 - 10.5 mg/dL LAB CHEMISTRY METHOD 06/05/2024 12:17 PM EDT [facility] Blood Venous blood specimen / Unknown Venipuncture / Unknown 06/05/2024 7:59 AM EDT 06/05/2024 10:46 AM EDT us Fabiana Odom MD LAB BLOOD ORDERABLES Fin al Result [facility] [address] [place] [address], * (ABNORMAL) Complete blood count (06/05/2024 7:59 AM EDT) WBC 9.9 4.8 - 10.8 K/mcL LAB HEMETOLOGY METHOD 06/05/2024 11:20 AM [facility] RBC 3.90(L) 4.50 - 5.50 M/mcL LAB HEMETOLOGY METHOD 06/05/2024 11:20 AM [facility] Hemoglobin 11.8(L) 13.5 - 17.5 g/dL LAB HEMETOLOGY METHOD 06/05/2024 11:20 AM T [facility] Hematocrit 37.2(L) 42.0 - 54.0 % LAB HEMETOLOGY METHOD 06/05/2024 11:20 AM T [facility] MCV 94.9 79.0 - 98.0 FL LAB HEMETOLOGY METHOD 06/05/2024 11:20 AM [facility] MCH 30.1 27.0 - 32.0 pcg LAB HEMETOLOGY METHOD 06/05/2024 11:20 AM EDT [facility] MCHC 31.7(L) 32.0 - 37.0 g/dL LAB HEMETOLOGY METHOD 06/05/2024 11:20 AM EDT [facility] RDW 14.0 11.0 - 15.0 % LAB HEMETOLOGY METHOD 06/05/2024 11:20 AM EDT [facility] Platelets 241 130 - 400 K/mcL LAB HEMETOLOGY METHOD 06/05/2024 11:20 AM EDT [facility] MPV 11.7(H) 7.0 - 11.0 FL LAB [facility]ETOLOGY [facility] NRBC 0.0 <1.0 % LAB HEMETOLOGY METHOD 06/05/2024 11:20 AM EDT [facility] NRBC Absolute 0.00 <0.10 K/mcL LAB HEMETOLOGY METHOD 06/05/2024 11:20 AM T [facility] Blood Venous blood specimen / Unknown Venipuncture / Unknown 06/05/2024 7:59 AM EDT 06/05/2024 10:46 AM EDT us Fabiana Odom MD LAB BLOOD ORDERABLES Fin al Result [facility] [address] [place] [address], documented in this encounter Visit Diagnoses Diagnosis Urinary tract infection, site not specified Benign prostatic hyperplasia without lower urinary tract symptoms Hyperlipidemia, unspecified documented in this encounter Care Teams Rn Assessment Relationship Specialty Start Date End Date Atilio Lowe MD [address] [place] [address] PCP - General Internal Medicine 02/11/24 documented as of this encounter
--- OUTSIDE RECORDS SUMMARY | 2025-01-09 12:20 | XMS_ITS | Clinical Summary ---
Author Organization [address] [facility] Address [address] [place] [address] Phone Care Team Providers Care Cyber Intel Planner Name Role Phone Atilio Lowe MD Primary Care Provider [phone] Active Problems Problem Noted Date Diagnosed Date Lymphatic edema 03/17/2024 Encounters Date Type Department Care Team Description 12/31/2024 Telephone [facility] [address] [phone] Alexandra Haji P, OTR/L from Last 3 Months Social History Tobacco Use Types Packs/Day Years Used Date Smoking Tobacco: Never Assessed Sex and Gender Information Value Date Recorded Sex Assigned at Male 01/22/2024 10:49 AM EST Legal Sex Male 6:12 AM EST Gender Identity Male 01/22/2024 10:49 AM EST Sexual Orientation Straight 05/22/2024 12 :44 PM EDT Plan of Treatment Health Maintenance Due Date Last Done Comments Colorectal Cancer Screening: Colonoscopy 1950 DTaP,Tdap,and Td Vaccines (1 - Tdap) 1968 Pneumococcal Vaccine: 50+ Years (1 of 1 - PCV) 1999 Abdominal Aortic Aneurysm (AAA) Screen 01/22/2022 Cholesterol Screening (Lipid Panel) 01/22/2022 Hepatitis C Screening 01/22/2022 Medicare Annual Wellness Visit 01/22/2022 Social Influencers of Health Screening 01/22/2022 Depression Screening 02/20/2024 COVID-19 Vaccine ( season) 2024 11/19/2023, 11/30/2022, 08/15/2022, Additional history exists Influenza Vaccine (#1) 2024 , 11/18/2022, 11/05/2021, Additional history exists Falls Risk Assessment 02/24/2025 02/25/2024 Zoster Vaccines Completed 02/01/2018, 11/16/2017 RSV Immunization Adult Patients Completed 12/18/2022 HIB Vaccines Aged Out No longer eligi [...] place ( = effective and patient's and emergency care tech are independent in management of garments) 04/29/2024 [...] LE's have no open areas LTG met Insurance MEDICARE [facility] [place] [id number] Care Teams Cyber Intel Planner Relationship Specialty Start Date End Date Atilio Lowe MD [address] [place] [id number] PCP - General Internal Medicine 02/11/24
--- OUTSIDE RECORDS SUMMARY | 2025-01-09 12:20 | XMS_ITS | Clinical Summary ---
Author Organization [facility] Address [address] [place] [address] Care Team Providers Care Lead Project Engineer Name Role Phone Atilio Lowe Primary Care Provider [phone] Social History Tobacco Use Types Packs/Day Years [...] Years (1 of 1 - PCV) 1999 Alcohol/Substance Use Screening 02/20/2024 Depression Screening and Follow-Up 02/20/2024 Fall Risk Screening 02/20/2024 Health Care Proxy Review 02/20/2024 Social Drivers of Health Annual Screening 02/20/2024 RSV Vaccine (60+ years old and patients) (1 - 1-dose 75+ series) 2024 Influenza Vaccine (#1) 2024 11/05/2021, 2020 COVID-19 Vaccine (2024- season) 2024 08/15/2022, 11/13/2021, 06/06/2021, Additional history exists Zoster Vaccines Completed 02/01/2018, 11/16/2017 Hepatitis B Vaccines Aged Out No long er eligible based on patient's age to complete this topic Insurance MEDICARE [facility] Care Teams Lead Project Engineer Relationship Specialty Start Date End Date Atilio Lowe [address] [place] [id number] PCP - General Internal Medicine 07/03/22
--- OUTSIDE RECORDS SUMMARY | 2025-01-09 12:20 | XMS_ITS | Clinical Summary ---
Author Organization [facility] Address [address] [place] [address] Phone Care Team Providers Care Radiographer Mammographer Name Role Phone Atilio Samson MD Primary Care Provider Allergies Active Allergy Reactions Criticality Noted Date Comments Lisinopril Cough 2017 Medications losartan (COZAAR) 100 MG tablet Take 100 mg by mouth daily. Active simvastatin (ZOCOR) 40 MG tablet Take 40 mg by mouth nightly. Active tamsulosin (FLOMAX) 0.4 mg Cp24 Take 0.4 mg by mouth daily. Active finasteride (PROSCAR) 5 mg tablet Take 5 mg by mouth daily. Active citalopram (CELEXA) 20 MG tablet Take 20 mg by mouth daily. Active aspirin 325 MG tablet Take 325 mg by mouth daily. Active docusate sodium (COLACE) 100 MG capsule Take 100 mg by mouth 2 (two) times a day. Active omeprazole (PRILOSEC) 40 MG capsule Take 40 mg by mouth daily. Active baclofen (LIORESAL) 10 MG tablet Take 10 mg by mouth 2 (two) times a day. Active Medication-Free Text MRI of the Cervical, Thoracic, and Lumbar spine 1 each 0 6 Active dantrolene (DANTRIUM) 25 MG capsule Take 25 mg by mouth 4 (four) times a day. Active tadalafil (CIALIS) 10 MG tablet Take 20 mg by mouth daily as needed for erectile dysfunction. Active naproxen sodium (ALEVE) 220 MG tablet Take 220 mg by mouth 2 (two) times a day with meals. Active MULTIVITAMIN ORAL Take by mouth. Activ e nystatin (NYSTOP) powder Apply topically 4 (four) times a day. Active doxycycline hyclate (VIBRAMYCIN) 100 MG capsule Take 100 mg by mouth 2 (two) times a day. Active Active Problems No known active problems Family History Medical History Relation Comments Heart disease Father Heart disease Paternal Grandfather Bipolar disorder Sister Breast cancer Sister Relation Status Comments Father Maternal Grandfather Maternal Grandmother Mother Paternal Grandfather Paternal Grandmother Sister Social History Tobacco Use Types Packs/Day Years Used Date Smoking Tobacco: Never Pipe Smokeless Tobacco: Never Alcohol Use Standard Drinks/Week Comments Not Asked 0 (1 standard drink = 0.6 oz pur e alcohol) Education Answer Date Recorded Are you interested in more education? Not on semaj e 06/25/2022 Are you concerned about learning? Not on file 06/25/2022 No 06/25/2022 No 06/25/2022 Digital Access Answer Date Recorded No 07/15/2022 No 07/15/2022 No 07/15/2022 Reliable internet access at home? Not on file 07/15/2022 Device with a working camera? Not on file Sex and Gender Information Value Date Recorded Sex Assigned at Not on file Legal Sex Male 6:46 PM EST Gender Identity Not on file Sexual Orientation Not on file Last Filed Vital Signs Vital Sign Reading Time Taken Comments Blood Pressure 137/77 05/30/2017 8:39 AM EDT Pulse 68 05/30/2017 8:39 AM EDT Temperature 36.4 C (97.5 F) 05/30/2017 7:00 AM EDT Respiratory Rate 16 05/30/2017 8:39 AM EDT Oxygen Saturation 99% 05/30/2017 8:39 AM EDT Inhaled Oxygen Concentration - - Weight 113.9 kg (251 lb) 05/28/2015 9:01 AM EDT Height 177.8 cm (5' 10 ) 05/28/2015 9:01 AM EDT Body Mass Index 36.01 05/28/2015 9:01 AM EDT Plan of Treatment Health Maintenance Due Date Last Done Comments Adult Td,Tdap Booster 1950 DEPRESSION SCREENING 1961 HEPATITIS C SCREENING 1967 COLOGUARD 1994 COLONOSCOPY 1994 COLORECTAL CANCER SCREENING 1994 FIT TEST 1994 FOBT 1994 SIGMOIDOSCOPY 1994 VIRTUAL COLONOSCOPY 1994 PNEUMOCOCCAL VACCINES (50+ years) (1 of 1 - PCV) 1999 CREATININE LEVEL 12/24/2010 12/24/2009 POTASSIUM LEVEL 12/24/2010 12/24/2009 LIPID PANEL 12/24/2014 12/24/2009 RSV VACCINE (1 - 1-dose 75+ series) 2024 INFLUENZA VACCINE (#1) 2024 COVID-19 VACCINE (3 - 2024-2 6 season) 2024 04/16/2020, 03/26/2020 SMOKING STATUS SCREENING (On ce After 26 Yrs) Completed 05/31/2017 ZOSTER VACCINES Completed 02/01/2018, 11/16/2017 HEPATITIS A VACCINES Aged Out No long er eligible based on patient's age to complete this topic HIB VACCINES Aged Out No longer eligi ble based on patient's age to complete this topic IPV VACCINES Aged Out No longer eligi ble based on patient's age to complete this topic MENINGOCOCCAL VACCINES (ACWY) Aged Out No longer eligible based on patient's age to complete this topic MENINGOCOCCAL VACCINES (B) Aged Out N o longer eligible based on patient's age to complete this topic Medical Devices Implanted Type Area Dynamicist Device Identifier Shelf Expiration Date Model / Serial / Lot Iol Acrysof Iq [id number] 21.5d-05/30/2017 Implanted:2017 (Quantity not on file) SHARON 01/18/2021 Procedures Procedure Name Priority Date/Time Associated Diagnosis Comments HISTORICAL LAB Routine 12/24/2009 6:45 AM EDT HISTORICAL LAB Routine 12/24/2009 6:45 AM EDT from Last 3 Months or Most Recently Relevant to Health Maintenance Results * (ABNORMAL) Historical Lab (12/24/2009 6:45 AM EDT) Only the most recent of2 resultswithin the time period is included. High Density Lipoprotein 32(Abnorm ally L) 35 - 100 mg/dl [facility] Cholesterol 130 mg/dl [facility] Comment:DESIRABLE: <200 Triglycerides 78 40 - 150 mg/dl [facility] Low Density Lipoprotein 82 mg/dl [facility] Comment:DESIRABLE: <130 Cardiac Risk Ratio 4.1 [facility] Comment:NORMAL RISK RATIO: 5 .0 OR LESS 12/24/2009 6:45 AM EDT 12/24/2009 1:04 PM EDT Comment:BLOOD us Onesimo Wray MD LAB BLOOD ORDERABLES Final Result [address] [address] from Last 3 Months or Most Recently Relevant to Health Maintenance Insurance Member Subscriber Plan / Payer (Ef fective 2011-Present) Name:Dillon Treviño Relation to Subscriber:Self Name:DILLON TREVIÑO Payer ID:Not on file Type:HMO Address: [place] [id number] Member Subscriber Plan / Payer (Ef fective 2011-Present) Name:Dillon Treviño Relation to Subscriber:Self Name:DILLON TREVIÑO Payer ID:Not on file Type:O Address: [place] [id number] Care Teams Radiographer Mammographer Relationship Specialty Start Date End Date Atilio Samson MD [address] [place] [id number] PCP - General 08/19/13 Additional Source Comments The information contained in this document represents components of the legal health record. It is not the complete legal health record.[facility]
--- OUTSIDE RECORDS SUMMARY | 2025-01-09 12:20 | XMS_ITS | Encounter Summary ---
Author Organization [employer] Address [address] [place] [address] Care Team Providers Care Blueprinting Machine Operator Name Role Phone Atilio Lowe MD Primary Care Provider [phone] Encounter Details Date Type Department Care Team (Late st Contact Info) Description 06/11/2024 Lab Requisition [facility] - Main Lab [address] [facility] [place] [phone] Fabiana Odom MD [address] [facility] 1 [place] [address] Urinary tract infection, site not specified; Benign [...] place ( = effective and patient's and pharmacy care coordinator are independent in management of [...] unspecified documented in this encounter Care Teams Blueprinting Machine Operator Relationship Specialty Start Date End Date Atilio Lowe MD [address] [place] [address] PCP - General Internal Medicine 02/11/24 documented as of this encounter
--- OUTSIDE RECORDS SUMMARY | 2025-01-09 12:20 | XMS_ITS | Encounter Summary ---
Author Organization [facility] Address [address] [place] [address] Care Team Providers Care Fire And Safety Helper Name Role Phone Atilio Lowe MD Primary Care Provider [phone] Encounter Details Date Type Department Care Team (Late st Contact Info) Description 05/29/2024 Lab Requisition [facility] - Main Lab [address] [facility] [place] [id number] Fabiana Odom MD [address] [facility] 1 [place] [address] Vitamin D deficiency, unspecified; Urinary tract infection, [...] place ( = effective and patient's and wound care technician are independent in management of garments) 04/29/2024 [...] LAB CHEMISTRY METHOD 05/29/2024 4:[address] [facility] Blood Venous blood specimen / Unknown Venipuncture / Unknown 05/29/2024 6:55 AM EDT 05/29/2024 9:08 AM EDT Fabiana Odom MD LAB BLOOD ORDERABLES Fin al Result Performing Organization Address [facility] de Phone Number [facility] [address] [place] [address], [place] [phone] * (ABNORMAL) Vitamin D 25 hydroxy (05/29/2024 6:55 AM EDT) Pathologist [facility] Vit D, 25-Hydroxy 5.7(L) 30.0 - 80.0 ng/mL LAB CHEMISTRY METHOD 05/29/2024 11:[address] [facility] Blood Venous blood specimen / Unknown Venipuncture / Unknown 05/29/2024 6:55 AM EDT 05/29/2024 9:08 AM EDT Fabiana Odom MD LAB BLOOD ORDERABLES Fin al Result Performing Organization Address [facility] de Phone Number [facility] [address] [place] [address], [place] [phone] * (ABNORMAL) Vitamin B12 (05/29/2024 6:55 AM EDT) Vitamin B-12 1,140(H) 250 - 900 pcg/mL LAB CHEMISTRY METHOD 05/29/2024 10:[address] [facility] Blood Venous blood specimen / Unknown Venipuncture / Unknown 05/29/2024 6:55 AM EDT 05/29/2024 9:08 AM EDT Fabiana Odom MD LAB BLOOD ORDERABLES Fin al Result Performing Organization Address [facility] de Phone Number [facility] [address] [place] [address], * Magnesium (05/29/2024 6:55 AM EDT) [facility] Magnesium 2.3 1.9 - 2.6 mg/dL LAB CHEMISTRY METHOD 05/29/2024 9:[address] [facility] Blood Venous blood specimen / Unknown Venipuncture / Unknown 05/29/2024 6:55 AM EDT 05/29/2024 9:08 AM EDT Fabiana Odom MD LAB BLOOD ORDERABLES Fin al Result Performing Organization Address [facility] de Phone Number [facility] [address] [place] [address], * Folate (05/29/2024 6:55 AM EDT) [facility] Folate 6.3 2.8 - 17.0 ng/ml LAB CHEMISTRY METHOD 05/29/2024 10:[address] [facility] Blood Venous blood specimen / Unknown Venipuncture / Unknown 05/29/2024 6:55 AM EDT 05/29/2024 9:08 AM EDT Fabiana Odom MD LAB BLOOD ORDERABLES Fin al Result Performing Organization Address City/[facility]/ZIP Co de Phone Number [facility] [address] [place] [address], * (ABNORMAL) Basic metabolic panel (05/29/2024 6:55 AM EDT) [facility] Sodium 141 133 - 145 mmol/L LAB CHEMISTRY METHOD 05/29/2024 9:[address] [facility] Potassium 4.4 3.5 - 5.5 mmol/L LAB CHEMISTRY METHOD 05/29/2024 9:57 AM [facility] Chloride 106 96 - 110 mmol/L LAB CHEMISTRY METHOD 05/29/2024 9:57 AM [facility] CO2 30 21 - 32 mmol/L LAB CHEMISTRY METHOD 05/29/2024 9:57 AM [facility] Anion Gap 5 3 - 11 LAB CHEMISTRY METHOD 05/29/2024 9:57 AM [facility] Glucose 103(H) 70 - 100 mg/dL LAB CHEMISTRY METHOD 05/29/2024 9:57 AM [facility] BUN 29(H) 5 - 25 mg/dL LAB CHEMISTRY METHOD 05/29/2024 9:57 AM [facility] Creatinine 0.92 0.70 - 1.30 mg/dL LAB CHEMISTRY METHOD 05/29/2024 9:57 AM [facility] eGFR 87 >=60 mL/min/1. 73m2 LAB CHEMISTRY METHOD 05/29/2024 9:57 AM [facility] Comment:Calculation based on the Chronic Kidney Disease Epidemiology Collaboration (CKD-EPI) equation refit without adjustment for race. BUN/Creatinine Ratio 31.5 LAB CHEMISTRY METHOD 05/29/2024 9:57 AM [facility] Calcium 8.8 8.5 - 10.5 mg/dL LAB CHEMISTRY METHOD 05/29/2024 9:57 AM [facility] Blood Venous blood specimen / Unknown Venipuncture / Unknown 05/29/2024 6:55 AM EDT 05/29/2024 9:08 AM EDT us Fabiana Odom MD LAB BLOOD ORDERABLES Fin al Result [facility] [address] [place] [address], * (ABNORMAL) Complete blood count (05/29/2024 6:55 AM EDT) [facility] WBC 10.0 4.8 - 10.8 K/mcL LAB HEMETOLOGY METHOD 05/29/2024 9:32 AM [facility] RBC 4.10(L) 4.50 - 5.50 M/mcL LAB HEMETOLOGY METHOD 05/29/2024 9:32 AM [facility] Hemoglobin 12.6(L) 13.5 - 17.5 g/dL LAB HEMETOLOGY METHOD 05/29/2024 9:32 AM [facility] Hematocrit 38.5(L) 42.0 - 54.0 % LAB HEMETOLOGY METHOD 05/29/2024 9:32 AM [facility] MCV 93.2 79.0 - 98.0 FL LAB HEMETOLOGY METHOD 05/29/2024 9:32 AM [facility] MCH 30.5 27.0 - 32.0 pcg LAB HEMETOLOGY METHOD 05/29/2024 9:32 AM [facility] MCHC 32.7 32.0 - 37.0 g/dL LAB HEMETOLOGY METHOD 05/29/2024 9:32 AM [facility] RDW 13.2 11.0 - 15.0 % LAB HEMETOLOGY METHOD 05/29/2024 9:32 AM [facility] Platelets 277 130 - 400 K/mcL LAB HEMETOLOGY METHOD 05/29/2024 9:32 AM [facility] MPV 10.9 7.0 - 11.0 FL LAB HEMETOLOGY METHOD 05/29/2024 9:32 AM [facility] NRBC 0.0 <1.0 % LAB HEMETOLOGY METHOD 05/29/2024 9:32 AM [facility] NRBC Absolute 0.00 <0.10 K/mcL LAB HEMETOLOGY METHOD 05/29/2024 9:[address] [facility] Blood Venous blood specimen / Unknown Venipuncture / Unknown 05/29/2024 6:55 AM EDT 05/29/2024 9:08 AM EDT us Fabiana Odom MD LAB BLOOD ORDERABLES Fin al Result [facility] [address] [place] [address], documented in this encounter Visit Diagnoses Diagnosis Vitamin D deficiency, unspecified Urinary tract infection, site not specified Benign prostatic hyperplasia without lower urinary tract symptoms Hyperlipidemia, unspecified documented in this encounter Care Teams Fire And Safety Helper Relationship Specialty Start Date End Date Atilio Lowe MD [address] [place] [id number] PCP - General Internal Medicine 02/11/24 documented as of this encounter
--- OUTSIDE RECORDS SUMMARY | 2025-01-09 12:20 | XMS_ITS | Clinical Summary ---
Author Organization [facility] Address [address] [place] [address] Care Team Providers Care Ticket Printer And Tagger Name Role Phone Unavailable Primary Care Provider Unavailabl e Social History Tobacco Use Types Packs/Day Years Used Date Smoking Tobacco: Never Assessed Sex and Gender Information Value Date Recorded Sex Assigned at Not on file Legal Sex Male 1:13 PM EDT Gender Identity Not on file Sexual Orientation Not on file Plan of Treatment Health Maintenance Due Date Last Done Comments Advance Care Planning 1950 Hepatitis C Virus Screening 1950 DTaP/Tdap/Td Vaccines (1 - Tdap) 1968 Pneumococcal Vaccines 50+ (1 of 1 - PCV) 1999 Zoster (Shingles) Vaccine (1 of 2) 1999 RSV Vaccine 50 years and old er and Patients (1 - 1-dose 75+ series) 2024 COVID-19 Vaccine ( - 2023-2 5 season) 2024 Hepatitis B Vaccines Aged Out No long er eligible based on patient's age to complete this topic
--- OUTSIDE RECORDS SUMMARY | 2025-01-09 12:20 | XMS_ITS | Encounter Summary ---
Author Organization [facility] Address [address] [place] [address] Care Team Providers Care Marine Electrician Helper Name Role Phone Atilio Lowe MD Primary Care Provider [phone] Encounter Details Date Type Department Care Team (Late st Contact Info) Description 12/31/2024 [facility] [address] [facility] [address] [place] [address] Alexandra Haji, OTR/L Social History Tobacco Use Types Packs/Day Years [...] place ( = effective and patient's and pet care worker are independent in management of garments) 04/29/2024 [...] documented as of this encounter Visit Diagnoses Not on filedocumented in this encounter Care Teams Marine Electrician Helper Relationship Specialty Start Date End Date Atilio Lowe MD [address] [place] [address] PCP - General Internal Medicine 02/11/24 documented as of this encounter
== END 2025-01-09 12:37 | disposition home or self-care (01) ==
LOC: HO.HUSH 11:30
PROVIDERS: PCP Family Medicine; Visit Provider Urology
DX: N39.0 Urinary tract infection, site not specified (principal); Z93.59 Other cystostomy status; N31.9 Neuromuscular dysfunction of bladder, unspecified
CPT/HCPCS: 51705; 99214

== ENCOUNTER → 2025-01-09 11:29 | Outpatient (BNVA) | payer MEDICARE, OTHER, SELFPAY | PROVIDERS: PCP Family Medicine; Visit Provider Urology | DX: N39.0 Urinary tract infection, site not specified (principal); N31.9 Neuromuscular dysfunction of bladder, unspecified; Z93.59 Other cystostomy status | CPT/HCPCS: 51705; 99212 ==